=== PATIENT | female | born 1930 | race Caucasian/White ===

== ENCOUNTER 2016-07-28 18:24 | Inpatient (IN) | payer OTHER ==
--- NOTE | 2016-07-28 18:49 | EDPHY ---
H & P Stated Complaint: Fatigue and urinary frequency x 2 days, new chemo started this week Time Seen by Provider: 07/28/16 18:47 HPI/ROS: CHIEF COMPLAINT: Fatigue, urinary frequency, new chemotherapy x2 weeks HISTORY OF PRESENT ILLNESS: The patient has a history of metastatic breast cancer. She presents to the ED with a 2 day history of fatigue, subjective fevers, urinary frequency and a history of having started a new oral chemotherapeutic agent 2 weeks ago. The patient denies cough, congestion, vomiting, diarrhea, rash or additional infectious symptoms. She reports general malaise and weakness. She has no history of fall or trauma. The patient denies acute headache, focal numbness, weakness or additional complaints. REVIEW OF SYSTEMS: A comprehensive 10 point review of systems is otherwise negative aside from elements mentioned in the history of present illness. Source: Patient Exam Limitations: No limitations - Personal History Current Tetanus Diphtheria and Acellular Pertussis (TDAP): Yes - Medical/Surgical History Hx Asthma: No Hx Chronic Respiratory Disease: No Hx Diabetes: Yes Hx Cardiac Disease: No Hx Renal Disease: No Hx Cirrhosis: No Hx Alcoholism: No Hx HIV/AIDS: No Hx Splenectomy or Spleen Trauma: No Other PMH: Breast CA-mets to bone and liver (chemo x9 years) - Social History Smoking Status: Never smoked - Physical Exam Exam: General Appearance: Elderly female, no acute distress, thin Eyes: Pupils equal and round no pallor or injection ENT, Mouth: Dry mucous membranes Respiratory: There are no retractions, lungs are clear to auscultation Cardiovascular: Regular rate and rhythm Gastrointestinal: Abdomen is soft and nontender, no masses, bowel sounds normal Neurological: 5/5 strength noted all 4 extremities Skin: Warm and dry, no rashes/cellulitis/abscess Musculoskeletal: Neck is supple nontender Extremities: symmetrical, full range of motion Constitutional: Initial Vital Signs Temperature (C) 37.2 C 07/28/16 18:31 Heart Rate 92 07/28/16 18:31 Respiratory Rate 16 07/28/16 18:31 Blood Pressure 130/74 H 07/28/16 18:31 O2 Sat (%) 91 L 07/28/16 18:31 O2 Delivery Mode Room Air Allergies/Adverse Reactions: No Known Allergies Allergy (Unverified 10/05/15 15:25) Home Medications: Medication Instructions Recorded Aspirin 81 mg PO DAILY 10/05/15 Herbals/Supplements -Info Only PO DAILY 10/05/15 Simvastatin 40 mg PO DAILY20 10/05/15 Synthroid 100 mcg (RX) 100 mcg PO 10/05/15 Synthroid 50 mcg (RX) 50 mcg PO 10/05/15 Kiqali 07/28/16 Lotrozole 07/28/16 Methylphenidate 07/28/16 Medical Decision Making ED Course/Re-evaluation: The patient had an IV established. The patient has a floridly positive urinalysis. Patient received a 1 g of ceftriaxone. She received 2 L of normal saline. The patient is globally weak. She has developed a low-grade fever in the emergency department. I do feel that she should be admitted to the hospital secondary to weakness. She is certainly a fall risk. Her is uncomfortable taking care of her at home. The patient will be admitted to the hospitalist service. The patient currently has no SIRS criteria or evidence of sepsis. I did re-evaluate the patient at 8:10 p.m.. She is comfortable in the room. Vital signs remained stable. Consultation is made with Dr. Chino from the hospitalist service. Differential Diagnosis: Differential diagnosis considered includes neutropenic fever, urinary tract infection, sepsis, metabolic abnormality - Data Points Laboratory Results: Laboratory Results 07/28/16 18:34 07/28/16 18:34 07/28/16 07/28/16 07/28/16 19:00 18:34 18:34 WBC 5.68 10^3/uL 10^3/uL (3.80-9.50) RBC 3.74 10^6/uL L 10^6/uL (4.18-5.33) Hgb 12.3 g/dL L g/dL (12.6-16.3) Hct 37.6 % L % (38.0-47.0) MCV 100.5 fL H fL (81.5-99.8) MCH 32.9 pg pg (27.9-34.1) MCHC 32.7 g/dL g/dL (32.4-36.7) RDW 20.1 % H % (11.5-15.2) Plt Count 128 10^3/uL L 10^3/uL (150-400) MPV 10.1 fL fL (8.7-11.7) Neut % (Auto) Not Reported Lymph % (Auto) Not Reported [place] % (Auto) Not Reported Eos % (Auto) Not Reported Baso % (Auto) Not Reported Nucleat RBC Rel Count 0.0 % % (0.0-0.2) Absolute Neuts (auto) Not Reported Absolute Lymphs (auto) Not Reported Absolute Monos (auto) Not Reported Absolute Eos (auto) Not Reported Absolute Basos (auto) Not Reported Absolute Nucleated RBC 0.00 10^3/uL 10^3/uL (0-0.01) Immature Gran % Not Reported Seg Neutrophils % 79 % % Band Neutrophils % 10 % % Lymphocytes % 9 % % Monocytes % 1 % % Basophils % 1 % % Immature Gran # Not Reported Absolute Seg Neuts 4.49 10^/uL 10^/uL (1.70-6.50) Absolute Band Neuts 0.57 10^3/uL 10^3/uL (0.00-0.70) Absolute Lymphocytes 0.51 10^3/uL L 10^3/uL (1.00-3.00) Absolute Monocytes 0.06 10^3/uL L 10^3/uL (0.30-0.80) Absolute Basophils 0.06 10^3/uL 10^3/uL (0.02-0.10) Atypical Lymphocytes 3+ H Platelet Estimate DECREASED L (ADEQ) Polychromasia 1+ H Oval Macrocytes 1+ H Acanthocytes (Spur) 1+ H Smear Review By Pending Sodium 130 mEq/L L mEq/L (134-144) Potassium 4.1 mEq/L mEq/L (3.5-5.2) Chloride 99 mEq/L mEq/L (97-110) Carbon Dioxide 20 mEq/l L mEq/l (22-31) Anion Gap 11 mEq/L mEq/L (8-16) BUN 26 mg/dL H mg/dL (7-23) Creatinine 1.5 mg/dL H mg/dL (0.6-1.0) Estimated GFR 33 Glucose 108 mg/dL H mg/dL (70-100) Calcium 9.2 mg/dL mg/dL (8.5-10.4) Urine Color YELLOW Urine Appearance MODERATELY TURBID Urine pH 6.0 (5.0-7.5) Ur Specific [place] 1.013 (1.002-1.030) Urine Protein 2+ H (NEGATIVE) Urine Ketones NEGATIVE (NEGATIVE) Urine Blood 2+ H (NEGATIVE) Urine Nitrate NEGATIVE (NEGATIVE) Urine Bilirubin NEGATIVE (NEGATIVE) Urine Urobilinogen NEGATIVE EU EU (0.2-1.0) Ur Leukocyte Esterase 2+ H (NEGATIVE) Urine RBC 25-50 /hpf H /hpf (0-3) Urine WBC 50-182 /hpf H /hpf (0-3) Ur Epithelial Cells TRACE /lpf /lpf (NONE-1+) Urine Bacteria TRACE /hpf H /hpf (NONE SEEN) Ur Culture Indicated? INDICATED H (NI) Urine Glucose NEGATIVE (NEGATIVE) Medications Given: Discontinued Medications Ceftriaxone Sodium/Dextrose (Rocephin 1 Gm (Premix)) 50 mls @ 100 mls/hr IV EDNOW ONE PRN Reason: Protocol Stop: 07/28/16 19:30 Last Admin: 07/28/16 19:25 Dose: 50 mls Sodium Chloride (Ns) 1,000 mls @ 0 mls/hr IV ONCE ONE PRN Reason: Wide Open Stop: 07/28/16 19:03 Last Admin: 07/28/16 19:26 Dose: 1,000 mls Departure - Departure Disposition: [facility] Inpatient Acute Clinical Impression: Urinary tract infection, Dehydration, Metastatic breast cancer Condition: Fair Referrals: Patient,NotPresent [Primary Care Provider] - As per Instructions
[2016-07-28] MEDS ORDERED: NS 1,000 ML IV ONE ×2 (19:02)
[2016-07-28 19:07] LABS: ATYPICAL LYMPHOCYTE FLAG 0 (0-99); FRAGMENT RBC FLAG 0 (0-99); HEMATOCRIT 37.6 % (38.0-47.0); HEMOGLOBIN 12.3 g/dL (12.6-16.3); LIPEMIA HEMOLYSIS FLAG 80 (0-99); MEAN CELL HEMOGLOBIN 32.9 pg (27.9-34.1); MEAN CELL HEMOGLOBIN CONCENTR. 32.7 g/dL (32.4-36.7); MEAN CELL VOLUME 100.5 fL (81.5-99.8); MEAN PLATELET VOLUME 10.1 fL (8.7-11.7); PLATELET CLUMPS FLAG 10 (0-99); PLATELET COUNT 128 10^3/uL (150-400); RED BLOOD CELL COUNT 3.74 10^6/uL (4.18-5.33)
[2016-07-28 19:08] LABS: LEFT SHIFT FLG 120 (0-99); RED CELL DISTRIBUTION WIDTH 20.1 % (11.5-15.2)
[2016-07-28 19:09] LABS: ADD DIFF? YES; ADD MORPH? NO; ADD SCAN? NO
[2016-07-28 19:11] LABS: ANION GAP 11 mEq/L (8-16); CALCIUM 9.2 mg/dL (8.5-10.4); CARBON DIOXIDE 20 mEq/l (22-31); CHLORIDE 99 mEq/L (97-110); CREATININE 1.5 mg/dL (0.6-1.0); GLOMERULAR FILTRATION RATE 33; GLUCOSE 108 mg/dL (70-100); POTASSIUM 4.1 mEq/L (3.5-5.2); SODIUM 130 mEq/L (134-144)
[2016-07-28 19:17] LABS: COLOR YELLOW; LEUKOCYTE ESTERASE,URINE 2+ (NEGATIVE); NITRITE,URINE NEGATIVE (NEGATIVE)
[2016-07-28 19:20] LABS: BACTERIA TRACE /hpf (NONE SEEN); RBC,URINE 25-50 /hpf (0-3); WBC,URINE 50-182 /hpf (0-3)
[2016-07-28 19:56] LABS: MACROCYTES 1+; PLATELET ESTIMATE DECREASED (ADEQ); POLYCHROMASIA 1+
[2016-07-28 19:57] LABS: ACANTHOCYTES 1+
[2016-07-28] MEDS ORDERED: ACETAMINOPHEN 325 MG TAB PO ONE (20:08)
[2016-07-28] MEDS ORDERED: ONDANSETRON 4 MG/2 ML VIAL IVP PRN (20:10)
[2016-07-28] MEDS ORDERED: ONDANSETRON DISINTEGRATING 4 MG TAB PO PRN (20:10)
[2016-07-28] MEDS: NS 1,000 ML IV SCH (21:11)
--- NOTE | 2016-07-28 21:51 | GHP ---
[f rep st] HISTORY AND PHYSICAL DATE OF ADMISSION: 07/28/2016 CHIEF COMPLAINT: Fatigue and weakness. HISTORY OF PRESENT ILLNESS: An 86-year-old female with a history of breast cancer receiving chemoth erapy, who presents with complaints of fever and malaise. The patient reports over the course of th e last 72 hours a progressing weakness that kept her from even effectively ambulating to emergency s upport today. The patient describes intermittent fevers and chills for the past 72 hours and notes concurrent hematuria, which she has not had for a very long time. She denies any dysuria. Reports her appetite has been very poor. Denies any abdominal pain, nausea, or vomiting. Denies any headac hes, vision changes, chest pain, shortness of breath, or cough. The patient has no awareness of any recent sick contacts. She has been making effort to keep her fluid intake up. Her baseline per he r report is quite active, completing all her ADLs without complication. PAST MEDICAL HISTORY: Breast cancer metastatic to the bone and liver receiving chemotherapy; hypoth yroidism; hyperlipidemia. SOCIAL HISTORY: Negative for tobacco. Occasional alcohol. No illicit drugs or marijuana. FAMILY HISTORY: Positive for breast cancer in an aunt. ADVANCED DIRECTIVES: The patient is do not resuscitate. Her would be her medical decision maker. REVIEW OF SYSTEMS: A 10-point Review of Systems is negative with the exception of that reported in the HPI. PHYSICAL EXAMINATION: VITAL SIGNS: Blood pressure 130/60, heart rate 80, respiratory rate 18, 91% on room air, 37.9. GENERAL: This is a thin-appearing elderly female in no acute distress. HEENT: Notable for dry mucous membranes. Eyes: Negative for any icterus. CARDIAC: Regular rate and rhy thm. PULMONARY: Good respiratory effort. Clear to auscultation bilaterally. GASTROINTESTINAL: P ositive bowel sounds. Abdomen soft. She is nontender to palpation. MUSCULOSKELETAL: Negative for any lower extremity edema. SKIN: Negative for any rashes. NEUROLOGIC: She is alert and oriented x3. PSYCHIATRIC: She is pleasant and cooperative on interview and examination. DATA: White count 5.6, hematocrit 37.6, platelets of 128. Sodium of 130, potassium 4.1, creatinine of 1.5, recent baselines appear to be 1.1-1.3. BUN elevated at 26. Urinalysis shows 50-182 white b lood cells, positive leuk esterase. Telemetry, which I personally reviewed and interpreted, shows a sinus rhythm. ASSESSMENT AND PLAN: This is an 86-year-old female, presenting with fever and malaise. 1. Acute pyelonephritis: Patient is receiving chemotherapy. Presenting with hematuria and urinalys is consistent systemic symptoms of malaise and fever. Will IV fluid resuscitate and initiate IV lev ofloxacin. Urine cultures have been sent. Suspect the patient will respond to therapy in the next 24-48 hours. 2. Hypovolemic hyponatremia consistent with the patient's acute presentation. Will fluid resuscita te and recheck in the morning. 3. Acute on chronic kidney disease. The patient's creatinine is above her recent baselines. Again , will fluid resuscitate and recheck in the morning. 4. Metastatic breast cancer. She is actively followed by [facility]. Tolerating her treatment quite well. 5. Prophylaxis with Lovenox. 6. Diet; regular with nourishments. 7. Hypothyroidism. Will continue patient's Synthroid therapy. 8. Hyperlipidemia. Will continue patient's niacin and statin therapy. DISPOSITION: I expect in less than 2 midnights if the patient responds well to fluid resuscitation and antibiotic treatment. I discussed the case with the emergency room physician. Patient will be triaged to the [facility] for care. /[id number]/MODL
[2016-07-29] MEDS: LEVOTHYROXINE 100 MCG TAB PO SCH (05:28)
[2016-07-29] MEDS: NS 1,000 ML IV SCH ×2 (05:29→15:47)
[2016-07-29] MEDS: MULTIVITAMINS 1 EACH TAB PO SCH (08:36)
[2016-07-29] MEDS: CHOLECALCIFEROL VIT D3 1,000 UNITS TAB PO SCH (08:36)
[2016-07-29] MEDS: ACETAMINOPHEN 325 MG TAB PO PRN ×2 (08:36→20:31)
[2016-07-29] MEDS: LETROZOLE 2.5 MG TAB PO SCH (08:37)
[2016-07-29] MEDS: ASPIRIN 81 MG CHEWABLE TAB PO SCH (08:37)
[2016-07-29] MEDS: PRESERVISION AREDS2 FORMULA EYE VIT 1 EACH PO SCH (08:37)
[2016-07-29] MEDS: ENOXAPARIN 30 MG/0.3 ML SYR SC SCH (08:38)
[2016-07-29] MEDS ORDERED: NIACIN 250 MG PO SCH (09:00)
[2016-07-29] MEDS ORDERED: Herbals/Supplements -Info Only PO SCH (09:00)
--- NOTE | 2016-07-29 13:47 | HOSPPROG ---
Hospitalist Progress Note Assessment/Plan: DIAGNOSES: -ACUTE COMPLICATED URINARY TRACT INFECTION WITH SYSTEMIC SYMPTOMS AND HIGH FEVER -ACUTE RENAL INSUFFICIENCY, LIKELY HEMODYNAMICS DUE TO ABOVE -ANEMIA AND THROMBOCYTOPENIA FROM CANCER AND CHEMOTHERAPY -BREAST CANCER ON CURRENT CHEMOTHERAPY; METASTATIC DISEASE TO BONE AND LIVER As the patient has not really had any pain or tenderness, and we have no imaging studies, I would not give a diagnosis of pyelonephritis. It is possible that chemotherapy is somehow hiding painful symptoms from us. At this point she is making some progress. Nothing growing on cultures but will continue current empiric therapy as it seems to be working. PLANS: -continue empiric antibiotic therapy while waiting cultures -hydration -follow cell counts closely -follow renal function closely, consider imaging if her renal function does not resolve or if her infection does not resolve SUBJECTIVE: Feels a little better today with more energy a little bit stronger. Still having fever symptoms and a lot weaker than usual Appetite reasonably good No rigors today Again no abdominal pelvic or flank pain OBJECTIVE Vitals reviewed: T-max today 39.2, vitals otherwise normal Exam: alert oriented skin warm dry color ok resps not labored lungs clear BSs heart regular abd soft nondistended nontender, bowel sounds present There is notable absence of any tenderness in mid abdomen flanks or costovertebral angle areas limbs warm, no edema iv site ok Culture data: Pending Objective: Vital Signs Temp Pulse Resp BP Pulse Ox 36.8 C 77 18 120/60 94 07/29/16 11:45 07/29/16 11:45 07/29/16 11:45 07/29/16 11:45 07/29/16 11:45 07/28/16 07/29/16 07/30/16 06:59 06:59 06:59 Intake Total 2900 Output Total 375 Balance 2900 -375 ICD10 Worksheet Patient Problems: Problems Problem Status Onset Dehydration Acute Metastatic breast cancer Acute Urinary tract infection Acute
[2016-07-29] MEDS: ATORVASTATIN CALCIUM 20 MG TAB PO SCH (20:10)
[2016-07-29] MEDS ORDERED: HYDROmorphONE/DILAUDID 1 MG/ML SYR IVP PRN (22:34)
[2016-07-30] MEDS: NS 1,000 ML IV SCH ×3 (01:48→21:17)
[2016-07-30] MEDS: LEVOTHYROXINE 50 MCG TAB PO SCH (05:09)
[2016-07-30 05:35] LABS: ANION GAP 5 mEq/L (8-16); ATYPICAL LYMPHOCYTE FLAG 0 (0-99); CALCIUM 7.7 mg/dL (8.5-10.4); CARBON DIOXIDE 20 mEq/l (22-31); CHLORIDE 110 mEq/L (97-110); FRAGMENT RBC FLAG 0 (0-99); GLOMERULAR FILTRATION RATE 53; GLUCOSE 73 mg/dL (70-100); HEMATOCRIT 32.8 % (38.0-47.0); HEMOGLOBIN 10.4 g/dL (12.6-16.3); LIPEMIA HEMOLYSIS FLAG 80 (0-99); MEAN CELL HEMOGLOBIN 32.4 pg (27.9-34.1); MEAN CELL HEMOGLOBIN CONCENTR. 31.7 g/dL (32.4-36.7); MEAN CELL VOLUME 102.2 fL (81.5-99.8); MEAN PLATELET VOLUME 10.5 fL (8.7-11.7); PLATELET CLUMPS FLAG 10 (0-99); PLATELET COUNT 92 10^3/uL (150-400); POTASSIUM 3.8 mEq/L (3.5-5.2); RED BLOOD CELL COUNT 3.21 10^6/uL (4.18-5.33); SODIUM 135 mEq/L (134-144)
[2016-07-30 05:46] LABS: LEFT SHIFT FLG 130 (0-99); RED CELL DISTRIBUTION WIDTH 20.2 % (11.5-15.2)
[2016-07-30 05:47] LABS: ADD DIFF? YES; ADD MORPH? NO; ADD SCAN? NO
[2016-07-30 06:35] LABS: ECHINOCYTES 1+; ELLIPTOCYTES 1+; MACROCYTES 1+; POLYCHROMASIA 1+
[2016-07-30 06:36] LABS: PLATELET ESTIMATE DECREASED (ADEQ)
[2016-07-30] MEDS: PHENAZOPYRIDINE HCL 100 MG TAB PO SCH ×3 (07:57→18:31)
[2016-07-30] MEDS: CHOLECALCIFEROL VIT D3 1,000 UNITS TAB PO SCH (07:57)
[2016-07-30] MEDS: ASPIRIN 81 MG CHEWABLE TAB PO SCH (07:57)
[2016-07-30] MEDS: LETROZOLE 2.5 MG TAB PO SCH (07:57)
[2016-07-30] MEDS: ENOXAPARIN 30 MG/0.3 ML SYR SC SCH (07:57)
[2016-07-30] MEDS: MULTIVITAMINS 1 EACH TAB PO SCH (07:57)
[2016-07-30] MEDS: PRESERVISION AREDS2 FORMULA EYE VIT 1 EACH PO SCH (07:57)
[2016-07-30] MEDS: NIACIN 250 MG PO SCH (07:58)
--- NOTE | 2016-07-30 11:00 | SOAPPROG ---
SOAP Progress Note Assessment/Plan: Assessment: Plan: 07/30/16 11:00 urosepsis with e coli infection. temperature yesterday, still weak, improving. Given BRCA to bone mets and newer chemo, continue hospital care. BRCA with bone mets--holding new med, will f/u with [facility] as an outpatient Subjective: She feels better slowly. Appetite is low, but that is not unusual. She did have a mighty shake this am. + temp yesterday. She self caths on a regular basis and continues to do so here. New chemo meds per [facility] had been titrated up starting 3 weeks ago. She has not had it since she has been here. Objective: Vital Signs Temp Pulse Resp BP Pulse Ox 37.3 C 83 16 144/77 H 96 07/30/16 07:14 07/30/16 07:14 07/30/16 07:14 07/30/16 07:14 07/30/16 07:14 Laboratory Results 07/30/16 04:50 07/30/16 04:50 07/29/16 07/30/16 07/31/16 05:59 05:59 05:59 Intake Total 4978 Output Total 500 Balance 4478 Gen: NAD, tired, pale HEENT: no LN's Lungs: dry cough, mild coarseness--stable finding Heart: RRR ABd + bs soft nt LE's no edema culture e coli sensitive to ceftriaxone resistent to PCN and simple cephalosporins ICD10 Worksheet Patient Problems: Problems Problem Status Onset Dehydration Acute Metastatic breast cancer Acute Urinary tract infection Acute
[2016-07-30] MEDS: ACETAMINOPHEN 325 MG TAB PO PRN (16:40)
[2016-07-30] MEDS: ATORVASTATIN CALCIUM 20 MG TAB PO SCH (20:28)
--- NOTE | 2016-07-31 01:46 | CPEKG ---
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
[2016-07-31] MEDS ORDERED: DILTIAZEM 25 MG/5 ML VIAL IVP ONE (02:00)
--- NOTE | 2016-07-31 02:17 | HOSPPROG ---
Hospitalist Progress Note Assessment/Plan: Cross cover event note: RN paged me regarding new onset tachycardia (HR around 150s) noted on evening VS. Patient denied sensation of palpitations, chest pain, but did report some dizziness when walking to the restroom. On my evaluation, HR ranged from 130- 160 range, without improvement with Valsalva or IV fluid bolus of 500 cc. EKG was obtained and revealed afib vs aflutter, with underlying RBBB and LAFB. There are no old EKGs to compare. Given persistence of tachycardia, with EKG concerning for new onset Afib, patient was transferred to PCU for medical intervention and continued cardiac monitoring. - give diltiazem 10 mg IVP now - continue telemetry monitoring - check TTE, troponin and electrolytes - continue management of e coli UTI as previously documented Hilda Ramirez DO Objective: Vital Signs Temp Pulse Resp BP Pulse Ox 36.3 C 141 H 16 148/92 H 92 07/31/16 01:49 07/31/16 01:49 07/31/16 01:49 07/31/16 01:49 07/31/16 01:49 Laboratory Results 07/30/16 04:50 07/30/16 04:50 07/29/16 07/30/16 07/31/16 05:59 05:59 05:59 Intake Total 4978 650 Output Total 500 1550 Balance 6568 -478 ICD10 Worksheet Patient Problems: Problems Problem Status Onset Dehydration Acute Metastatic breast cancer Acute Urinary tract infection Acute
[2016-07-31] MEDS: NS 1,000 ML IV SCH (03:16)
[2016-07-31] MEDS ORDERED: OXYBUTYNIN CHLORIDE 5 MG TAB PO PRN (03:54)
[2016-07-31 04:05] LABS: % IMMATURE GRANULYOCYTES 0.5 % (0.0-1.1); ABSOLUTE IMMATURE GRANULOCYTES 0.02 10^3/uL (0.00-0.10); ADD DIFF? NO; ADD MORPH? NO; ADD SCAN? NO; ATYPICAL LYMPHOCYTE FLAG 0 (0-99); FRAGMENT RBC FLAG 0 (0-99); HEMATOCRIT 31.5 % (38.0-47.0); HEMOGLOBIN 10.2 g/dL (12.6-16.3); LEFT SHIFT FLG 30 (0-99); LIPEMIA HEMOLYSIS FLAG 80 (0-99); MEAN CELL HEMOGLOBIN 32.8 pg (27.9-34.1); MEAN CELL HEMOGLOBIN CONCENTR. 32.4 g/dL (32.4-36.7); MEAN CELL VOLUME 101.3 fL (81.5-99.8); MEAN PLATELET VOLUME 9.4 fL (8.7-11.7); PLATELET CLUMPS FLAG 10 (0-99); PLATELET COUNT 66 10^3/uL (150-400); RED BLOOD CELL COUNT 3.11 10^6/uL (4.18-5.33)
[2016-07-31 04:35] LABS: ANION GAP 6 mEq/L (8-16); CALCIUM 7.4 mg/dL (8.5-10.4); CARBON DIOXIDE 18 mEq/l (22-31); CHLORIDE 112 mEq/L (97-110); CREATININE 0.8 mg/dL (0.6-1.0); GLOMERULAR FILTRATION RATE > 60; GLUCOSE 78 mg/dL (70-100); POTASSIUM 3.4 mEq/L (3.5-5.2); SODIUM 136 mEq/L (134-144)
[2016-07-31 04:46] LABS: TROPONIN I 0.022 ng/mL (0-0.034)
[2016-07-31] MEDS: LEVOTHYROXINE 50 MCG TAB PO SCH (07:41)
[2016-07-31] MEDS ORDERED: POLYETHYLENE GLYCOL 3350 17 GM PKT ONE (08:26)
[2016-07-31] MEDS ORDERED: POTASSIUM CL 20 MEQ PKT ONE ×2 (08:26→21:07)
[2016-07-31] MEDS: PRESERVISION AREDS2 FORMULA EYE VIT 1 EACH PO SCH (08:34)
[2016-07-31] MEDS: ASPIRIN 81 MG CHEWABLE TAB PO SCH (08:34)
[2016-07-31] MEDS: CHOLECALCIFEROL VIT D3 1,000 UNITS TAB PO SCH (08:34)
[2016-07-31] MEDS: MULTIVITAMINS 1 EACH TAB PO SCH (08:34)
[2016-07-31] MEDS ORDERED: DILTIAZEM HCL/D5W 125 ML IV SCH (09:00)
[2016-07-31] MEDS ORDERED: ENOXAPARIN 40 MG/0.4 ML SYR SC SCH ×2 (09:00→21:00)
[2016-07-31] MEDS ORDERED: POTASSIUM CL 20 MEQ TAB PO ONE (09:00)
--- NOTE | 2016-07-31 09:31 | SOAPPROG ---
SOAP Progress Note Assessment/Plan: Assessment: Plan: 07/30/16 11:00 urosepsis with e coli infection. temperature yesterday, still weak, improving. Given BRCA to bone mets and newer chemo, continue hospital care. BRCA with bone mets--holding new med, will f/u with [facility] as an outpatient 07/31/16 09:30 new onset rapid a fib dilt drip started, increase lovenox to treament dose. Patient feels weaker, but is not distressed. D/W Dr Chacon UTI/urosepsis --doing well with ceftriaxone BRCA with mets--new chemo held anemia--stable Subjective: The patient states she feels a bit weaker with the new a fib. No SOB, some increase in cough. No CP/pressure. No n/v Mild residual bladder pain Objective: Vital Signs Temp Pulse Resp BP Pulse Ox 36.6 C 136 H 25 H 133/97 H 95 07/31/16 08:03 07/31/16 08:03 07/31/16 08:03 07/31/16 08:03 07/31/16 08:03 Laboratory Results 07/31/16 03:50 07/31/16 03:50 07/30/16 07/31/16 08/01/16 05:59 05:59 05:59 Intake Total 4978 700 Output Total 500 1550 Balance 0088 -850 Gen: NAD, pleasant, present HEENT: no erythema in throat, neck without masses Lungs: slightly productive cough, mildly coarse BS Heart: tachy irreg irreg Echo just completed, tech--no major abn's LE's no edema K+ 3.4 TSH nl Apr 2016 ICD10 Worksheet Patient Problems: Problems Problem Status Onset Dehydration Acute Metastatic breast cancer Acute Urinary tract infection Acute
[2016-07-31] MEDS: LETROZOLE 2.5 MG TAB PO SCH (09:38)
[2016-07-31] MEDS: PHENAZOPYRIDINE HCL 100 MG TAB PO SCH ×3 (09:39→21:03)
[2016-07-31] MEDS: NIACIN 250 MG PO SCH (09:39)
--- NOTE | 2016-07-31 10:36 | ECHO ---
[id number] + + [address] : : [place] [address] : : [phone] + + Adult Echocardiographic Report + --------+ :Name: DELANEY WILLOUGHBY BStudy Date: 07/31/2016 08:49 AM : : Hospital Admission Number: [id number] Locat ion: 222: :: 1930 Gender: Female Height: 66 in : :Age: 86 yrs Race: WH Weight: 110 l b : :Reason For Study: new afib : : BSA: 1.6 mete rs2 : :History: No previous : + --------+ MMode/2D Measurements \T\ Calculations IVSd: 1.6 cm LVIDd: 3.5 cm FS: 40.0 % LVOT diam: 1.7 cm LVPWd: 0.93 cm LVIDs: 2.1 cm EDV(Teich): LVOT area: 51.6 ml 2.4 cm2 ESV(Teich): 14.7 ml EF(Teich): 71.6 % LVLd ap4: 5.8 cm SV(MOD-sp4): EDV(MOD-sp4): 26.0 ml 39.0 ml LVLs ap4: 4.9 cm ESV(MOD-sp4): 13.0 ml EF(MOD-sp4): 66.7 % Normal Measurement Values: + + :LVIDd (3.5-5.7cm) IVSd (0.6-1.1cm) LVPWd (0.6-1.1cm) Aortic Root (2.0-3.7cm)Left Atrium (1.5-4.0cm): :LV Vol(d) (76-115ml) LV Vol(s) (29-48ml) Ejec Fraction (50-65%)PV Sergio (0.6- 1.2m/s) TV Sergio (0.4-1.0m/s) : :MV E Sergio (0.8-1.0m/s)MV A Sergio (0.3-1.0m/s)LVOT Sergio (0.7-1.2m/s) Asc Ao Sergio ( 0.9-1.8m/s) : + + Doppler Measurements \T\ Calculations MV E max sergio: Ao V2 max: LV V1 mean PG: MR max sergio: 101.0 cm/sec 125.2 cm/sec 2.0 mmHg 495.2 cm/sec MV dec time: Ao max PG: LV V1 mean: MR max P.16 sec 6.3 mmHg 64.8 cm/sec 98.1 mmHg Ao mean PG: LV V1 VTI: 14.6 cm 3.1 mmHg Ao V2 mean: 84.4 cm/sec Ao V2 VTI: 19.5 cm CARLOS(I,D): 1.8 cm2 SV(LVOT): 34.3 ml PA V2 max: TR max sergio: 69.2 cm/sec 319.3 cm/sec PA max PG: TR max P.9 mmHg 40.8 mmHg RAP systole: 15.0 mmHg RVSP(TR): 55.8 mmHg Left Ventricle The left ventricle is normal in size. Moderate concentric LVH noted. Diastolic Function Indeterminate due to due to afib.. LVEF = 60-65% with normal wall motions. No regional wall motion abnormalities noted. Right Ventricle The right ventricle is mildly dilated. The right ventricular systolic function is normal. Atria The left atrial size is normal. The right atrium is mild to moderately dilated. The interatrial septum is intact with no evidence for an atrial septal defect. Mitral Valve The mitral valve is normal in structure and function. There is no mitral valve stenosis. Mild to moderate MR without MV prolapse. Tricuspid Valve The tricuspid valve is normal in structure and function. There is no tricuspid stenosis. Mild to moderate TR with moderate Pulmonary HTN (PAS 51mmHg). Aortic Valve The aortic valve is normal in structure and function. There is no aortic stenosis. Mild aortic regurgitation. Pulmonic Valve The pulmonic valve is not well visualized. There is no pulmonic valvular stenosis. Trace pulmonic valvular regurgitation. Great Vessels The aortic root is normal size. Pericardium/Pleural There is a fat pad seen. trivial pericardial effusion. Conclusion A complete two-dimensional transthoracic echocardiogram was performed (2D, M-mode, Doppler and color flow Doppler). 1)Afib at 132bpm. 2)Normal LV size and systolic function with LVEF 60-65% and normal wall motions. 3)Moderate concentric LVH. 4)Mild-moderate ALEXANDRO. 5)Aortic valve sclerosis without or AI. 6)Mild-moderate MR without MV prolapse. 7)Mild to moderate TR with moderate pulmonary HTN. Final Reading Physician: Abdiaziz Velazquez electronically signed on 07/31/2016 10:35 AM Ordering Physician: Hilda Ramirez Performed By: Shy King
[2016-07-31] MEDS ORDERED: ENOXAPARIN 40 MG/0.4 ML SYR SC ONE (11:15)
[2016-07-31] MEDS: ENOXAPARIN 30 MG/0.3 ML SYR SC SCH ×2 (12:59→21:17)
[2016-07-31 15:21] LABS: POTASSIUM 3.7 mEq/L (3.5-5.2)
[2016-07-31] MEDS ORDERED: MAGNESIUM HYDROXIDE 30 ML UDCUP PO PRN (16:12)
[2016-07-31] MEDS ORDERED: POLYETHYLENE GLYCOL 3350 17 GM PKT PO PRN (16:12)
[2016-07-31] MEDS ORDERED: BISACODYL 10 MG SUPP PR PRN (16:12)
[2016-07-31] MEDS ORDERED: LACTULOSE 20 GM/30 ML UDCUP PO PRN (16:12)
[2016-07-31] MEDS ORDERED: POTASSIUM CL 20 MEQ PKT PO ONE (19:00)
[2016-07-31] MEDS: ATORVASTATIN CALCIUM 20 MG TAB PO SCH (21:04)
[2016-07-31] MEDS: SENNOSIDES/DOCUSATE SODIUM TAB PO SCH (21:18)
[2016-08-01] MEDS: NS 1,000 ML IV SCH (01:22)
[2016-08-01] MEDS: LEVOTHYROXINE 100 MCG TAB PO SCH (05:33)
[2016-08-01 05:52] LABS: HEMATOCRIT 27.7 % (38.0-47.0); HEMOGLOBIN 8.9 g/dL (12.6-16.3); MEAN CELL HEMOGLOBIN 32.2 pg (27.9-34.1); MEAN CELL HEMOGLOBIN CONCENTR. 32.1 g/dL (32.4-36.7); MEAN CELL VOLUME 100.4 fL (81.5-99.8); RED BLOOD CELL COUNT 2.76 10^6/uL (4.18-5.33)
[2016-08-01 06:29] LABS: ALANINE AMINOTRANSFERASE 48 IU/L (9-52); ALBUMIN 2.4 g/dL (3.5-5.0); ALKALINE PHOSPHATASE 157 IU/L (38-126); ANION GAP 4 mEq/L (8-16); ASPARTATE AMINOTRANSFERASE 53 IU/L (14-46); BILIRUBIN,TOTAL 0.5 mg/dL (0.1-1.4); CALCIUM 7.3 mg/dL (8.5-10.4); CARBON DIOXIDE 21 mEq/l (22-31); CHLORIDE 114 mEq/L (97-110); CREATININE 0.9 mg/dL (0.6-1.0); GLOMERULAR FILTRATION RATE 59; GLUCOSE 92 mg/dL (70-100); SODIUM 139 mEq/L (134-144); TOTAL PROTEIN 4.7 g/dL (6.3-8.2)
[2016-08-01] MEDS: ASPIRIN 81 MG CHEWABLE TAB PO SCH (10:24)
[2016-08-01] MEDS: PRESERVISION AREDS2 FORMULA EYE VIT 1 EACH PO SCH (10:24)
[2016-08-01] MEDS: MULTIVITAMINS 1 EACH TAB PO SCH (10:24)
[2016-08-01] MEDS: CHOLECALCIFEROL VIT D3 1,000 UNITS TAB PO SCH (10:24)
[2016-08-01] MEDS: ENOXAPARIN 30 MG/0.3 ML SYR SC SCH (10:24)
[2016-08-01] MEDS: PHENAZOPYRIDINE HCL 100 MG TAB PO SCH (10:24)
[2016-08-01] MEDS: LETROZOLE 2.5 MG TAB PO SCH (10:24)
[2016-08-01] MEDS: SENNOSIDES/DOCUSATE SODIUM TAB PO SCH ×3 (10:34→21:09)
[2016-08-01] MEDS: NIACIN 250 MG PO SCH (10:34)
--- NOTE | 2016-08-01 13:25 | SOAPPROG ---
SOAP Progress Note Assessment/Plan: Assessment: INfection, UTI vs possible pulmonary source with rales and pink sputum. Plan:Due to pink sputum, will stop Lovenox. Continue antibiotics. Check Chest X-ray. 08/01/16 13:25 Subjective: Feeling better. coughing up some pink tinged sputum. Generalized pain is improved. Objective: Vital Signs Temp Pulse Resp BP Pulse Ox 36.6 C 90 16 141/70 H 95 08/01/16 12:00 08/01/16 12:00 08/01/16 12:00 08/01/16 12:00 08/01/16 12:00 Laboratory Results 08/01/16 05:30 08/01/16 05:30 07/31/16 08/01/16 08/02/16 05:59 05:59 05:59 Intake Total 700 2955 Output Total 1550 Balance -850 2955 Lungs with L base rales. COR RRR, a-fib rapidly converted on Monday and has not returned. No significant edema. HGB low at 8.9 ICD10 Worksheet Patient Problems: Problems Problem Status Onset Dehydration Acute Metastatic breast cancer Acute Urinary tract infection Acute
[2016-08-01] MEDS: ATORVASTATIN CALCIUM 20 MG TAB PO SCH (20:50)
[2016-08-02] MEDS: LEVOTHYROXINE 50 MCG TAB PO SCH (06:03)
[2016-08-02] MEDS: MULTIVITAMINS 1 EACH TAB PO SCH (08:50)
[2016-08-02] MEDS: PRESERVISION AREDS2 FORMULA EYE VIT 1 EACH PO SCH (08:50)
[2016-08-02] MEDS: ASPIRIN 81 MG CHEWABLE TAB PO SCH (08:50)
[2016-08-02] MEDS: CHOLECALCIFEROL VIT D3 1,000 UNITS TAB PO SCH (08:50)
[2016-08-02] MEDS: LETROZOLE 2.5 MG TAB PO SCH (08:50)
[2016-08-02] MEDS: SENNOSIDES/DOCUSATE SODIUM TAB PO SCH ×2 (08:52→20:37)
[2016-08-02] MEDS: NIACIN 250 MG PO SCH (09:44)
[2016-08-02] MEDS: FUROSEMIDE 20 MG/2 ML VIAL IVP SCH (09:44)
[2016-08-02 10:39] LABS: % IMMATURE GRANULYOCYTES 1.2 % (0.0-1.1); ABSOLUTE IMMATURE GRANULOCYTES 0.05 10^3/uL (0.00-0.10); ADD DIFF? NO; ADD MORPH? NO; ADD SCAN? NO; ATYPICAL LYMPHOCYTE FLAG 0 (0-99); FRAGMENT RBC FLAG 0 (0-99); HEMATOCRIT 31.9 % (38.0-47.0); HEMOGLOBIN 10.4 g/dL (12.6-16.3); LEFT SHIFT FLG 20 (0-99); LIPEMIA HEMOLYSIS FLAG 80 (0-99); MEAN CELL HEMOGLOBIN 32.2 pg (27.9-34.1); MEAN CELL HEMOGLOBIN CONCENTR. 32.6 g/dL (32.4-36.7); MEAN CELL VOLUME 98.8 fL (81.5-99.8); MEAN PLATELET VOLUME 9.5 fL (8.7-11.7); PLATELET CLUMPS FLAG 0 (0-99); PLATELET COUNT 62 10^3/uL (150-400); RED BLOOD CELL COUNT 3.23 10^6/uL (4.18-5.33); RED CELL DISTRIBUTION WIDTH 19.9 % (11.5-15.2)
[2016-08-02 11:36] LABS: ALANINE AMINOTRANSFERASE 54 IU/L (9-52); ALBUMIN 2.9 g/dL (3.5-5.0); ALKALINE PHOSPHATASE 203 IU/L (38-126); ANION GAP 7 mEq/L (8-16); ASPARTATE AMINOTRANSFERASE 57 IU/L (14-46); BILIRUBIN,TOTAL 0.7 mg/dL (0.1-1.4); CALCIUM 8.4 mg/dL (8.5-10.4); CARBON DIOXIDE 22 mEq/l (22-31); CHLORIDE 108 mEq/L (97-110); CREATININE 0.8 mg/dL (0.6-1.0); GLOMERULAR FILTRATION RATE > 60; GLUCOSE 103 mg/dL (70-100); POTASSIUM 3.7 mEq/L (3.5-5.2); SODIUM 137 mEq/L (134-144); TOTAL PROTEIN 5.7 g/dL (6.3-8.2)
[2016-08-02] MEDS: ATORVASTATIN CALCIUM 20 MG TAB PO SCH (20:37)
--- NOTE | 2016-08-02 21:11 | SOAPPROG ---
SOAP Progress Note Assessment/Plan: Assessment: INfection, UTI vs possible pulmonary source with rales and pink sputum. [place] sputume resolved upon discontinuation of lovenox. Plan: Continue antibiotics. Add lasix. BUF cap IV. 08/01/16 13:25 08/02/16 21:10 Subjective: Still coughing. Feeling stronger. Muscle pain is improved. Objective: Vital Signs Temp Pulse Resp BP Pulse Ox 36.8 C 80 18 136/71 H 92 08/02/16 20:00 08/02/16 20:00 08/02/16 20:00 08/02/16 20:00 08/02/16 20:00 Laboratory Results 08/02/16 10:30 08/02/16 10:30 08/01/16 08/02/16 08/03/16 05:59 05:59 05:59 Intake Total 2955 1150 440 Balance 2955 1150 440 Lungs with bibasalar rales. COR RRR. No edema. Labs reviewed. CXR REviewed. ICD10 Worksheet Patient Problems: Problems Problem Status Onset Dehydration Acute Metastatic breast cancer Acute Urinary tract infection Acute
[2016-08-03] MEDS: LEVOTHYROXINE 100 MCG TAB PO SCH (05:22)
[2016-08-03 05:47] LABS: % IMMATURE GRANULYOCYTES 1.1 % (0.0-1.1); ABSOLUTE IMMATURE GRANULOCYTES 0.04 10^3/uL (0.00-0.10); ADD DIFF? NO; ADD MORPH? NO; ADD SCAN? YES; ATYPICAL LYMPHOCYTE FLAG 0 (0-99); FRAGMENT RBC FLAG 0 (0-99); HEMATOCRIT 27.5 % (38.0-47.0); LEFT SHIFT FLG 70 (0-99); LIPEMIA HEMOLYSIS FLAG 80 (0-99); MEAN CELL HEMOGLOBIN 32.7 pg (27.9-34.1); MEAN CELL HEMOGLOBIN CONCENTR. 32.7 g/dL (32.4-36.7); MEAN PLATELET VOLUME 11.2 fL (8.7-11.7); PLATELET CLUMPS FLAG 10 (0-99); PLATELET COUNT 52 10^3/uL (150-400); RED BLOOD CELL COUNT 2.75 10^6/uL (4.18-5.33); RED CELL DISTRIBUTION WIDTH 19.9 % (11.5-15.2)
[2016-08-03 06:07] LABS: ALANINE AMINOTRANSFERASE 57 IU/L (9-52); ALBUMIN 2.5 g/dL (3.5-5.0); ALKALINE PHOSPHATASE 201 IU/L (38-126); ANION GAP 6 mEq/L (8-16); ASPARTATE AMINOTRANSFERASE 68 IU/L (14-46); BILIRUBIN,TOTAL 0.6 mg/dL (0.1-1.4); CALCIUM 8.1 mg/dL (8.5-10.4); CARBON DIOXIDE 24 mEq/l (22-31); CHLORIDE 108 mEq/L (97-110); CREATININE 0.8 mg/dL (0.6-1.0); GLOMERULAR FILTRATION RATE > 60; GLUCOSE 90 mg/dL (70-100); POTASSIUM 3.4 mEq/L (3.5-5.2); SODIUM 138 mEq/L (134-144); TOTAL PROTEIN 4.8 g/dL (6.3-8.2)
[2016-08-03 06:39] LABS: SCAN NEGATIVE
[2016-08-03 07:40] VITALS: BP 140/78; PULSE 65; RESP 13; TEMP 98.1; O2SAT 90
[2016-08-03] MEDS: SENNOSIDES/DOCUSATE SODIUM TAB PO SCH (08:09)
[2016-08-03] MEDS: LETROZOLE 2.5 MG TAB PO SCH (08:11)
[2016-08-03] MEDS: CHOLECALCIFEROL VIT D3 1,000 UNITS TAB PO SCH (08:11)
[2016-08-03] MEDS: PRESERVISION AREDS2 FORMULA EYE VIT 1 EACH PO SCH (08:11)
[2016-08-03] MEDS: ASPIRIN 81 MG CHEWABLE TAB PO SCH (08:12)
[2016-08-03] MEDS: FUROSEMIDE 20 MG/2 ML VIAL IVP SCH (08:12)
[2016-08-03] MEDS: NIACIN 250 MG PO SCH (08:17)
[2016-08-03] MEDS ORDERED: POTASSIUM CL 20 MEQ/15 ML UDCUP PO SCH (09:00)
[2016-08-03] MEDS: MULTIVITAMINS 1 EACH TAB PO SCH (09:19)
--- NOTE | 2016-08-03 09:58 | SOAPPROG ---
SOAP Progress Note Assessment/Plan: Assessment: INfection, UTI vs possible pulmonary source with rales and pink sputum. [place] sputume resolved upon discontinuation of lovenox. Doing much better. FLuid overload improved. Mild hypokalemia on 20 mg lasix. Plan: Switch to oral antibiotics. K+ replacement, DC to home with a few days of K+ and lasix. FOllow up on Monday or Monday, sooner if needed. 08/01/16 13:25 08/02/16 21:10 08/03/16 09:56 Subjective: Getting frustrated with being in the hospital. Feels that she is comfortably strong enough to go home. Cough is better. Muscle aches are gone, she has no pain. Objective: Vital Signs Temp Pulse Resp BP Pulse Ox 36.7 C 65 13 140/78 H 90 L 08/03/16 07:35 08/03/16 07:35 08/03/16 07:35 08/03/16 07:35 08/03/16 07:35 Laboratory Results 08/03/16 05:30 08/03/16 05:30 08/02/16 08/03/16 08/04/16 05:59 05:59 05:59 Intake Total 1150 1540 Balance 1150 1540 Lungs with minimal basalar rales. COR RRR. VS good. K+ slightly low ICD10 Worksheet Patient Problems: Problems Problem Status Onset Dehydration Acute Metastatic breast cancer Acute Urinary tract infection Acute
--- NOTE | 2016-08-03 14:19 | GDS ---
[f rep st] DISCHARGE SUMMARY ADMISSION DIAGNOSIS: Urosepsis. DISCHARGE DIAGNOSES: Urinary infection, possible pneumonia, possibly urosepsis, widely metastatic b reast cancer on chemotherapy, neurogenic bladder. HOSPITAL COURSE: The patient was admitted with diagnosis of urosepsis. She was placed on antibioti cs. Urine culture returned with E coli, which was sensitive to ceftriaxone, nitrofurantoin, tetracy temple, trimethoprim sulfa, and levofloxacin, was resistant to ampicillin, ampicillin sulbactam, cefa zolin, cefoxitin. She was placed on ceftriaxone and clinically she improved. Chest x-ray was subse quently taken, which showed bibasilar infiltrates, which were thought to represent some fluid overlo ad, although, pneumonia could not be excluded. She was coughing up some pink material during the ho spitalization. It was felt that she did become somewhat fluid overloaded, and she was started on a short course of Lasix 20 mg daily, which resulted in mild hypokalemia, and she was placed on potassi um replacement. She did well and was discharged. MEDICATIONS AT TIME OF DISCHARGE: Tylenol as needed, Lasix 20 mg daily, levothyroxine 50 mg daily, Polyethylene glycol as needed, potassium chloride 20 mEq daily, Ceftin 500 mg b.i.d., simvastatin 40 mg h.s., herbals, aspirin 81 mg daily, Letrozole 2.5 mg daily, Kiqali 3 tabs daily, vitamin D3 1000 units daily, multivitamins, Slo-Niacin 250 mg daily. FOLLOW UP: She will follow up with me in the office in 1 week. She will call Dr. Shetty to follow up with him. She will call me immediately if symptoms worsen. /[id number]/MODL
[2016-08-04] MEDS ORDERED: CEFUROXIME AXETIL 250 MG TAB PO SCH (09:00)
== END 2016-08-03 12:16 | disposition home or self-care (01) | DRG 689 ==
LOC: EDBD → EDUNIT# → F1N 20:56 → OBSVTOIN 07-29 13:47 → F2W 07-31 03:03
PROVIDERS: ADMIT Hospitalist; ATTEND Hospitalist
DX: N39.0 Urinary tract infection, site not specified (principal); J18.9 Pneumonia, unspecified organism; C79.51 Secondary malignant neoplasm of bone; E87.1 Hypo-osmolality and hyponatremia; C78.7 Secondary malignant neoplasm of liver and intrahepatic bile duct; N31.9 Neuromuscular dysfunction of bladder, unspecified; C50.919 Malignant neoplasm of unspecified site of unspecified female breast; E03.9 Hypothyroidism, unspecified; E78.5 Hyperlipidemia, unspecified; N18.9 Chronic kidney disease, unspecified; B96.20 Unspecified Escherichia coli [E. coli] as the cause of diseases classified elsewhere
CPT/HCPCS: 96365; 97161-GP; 97165-GO; G0378; G8978-GP-CI; G8979-GP-CI; G8980-GP-CI; G8987-GO-CI; G8988-GO-CH; G8989-GO-CH; J0696; J1170; J1642; J1650

== ENCOUNTER 2017-01-27 14:52 | Inpatient (IN) | payer OTHER ==
--- NOTE | 2017-01-27 15:15 | EDPHY ---
H & P Time Seen by Provider: 01/27/17 15:05 HPI/ROS: CHIEF COMPLAINT: I am so tired HISTORY OF PRESENT ILLNESS: This 86-year-old woman is on her last day of Levaquin for urinary tract infection. Recent admission for urinary tract infection and sepsis. Today she was walking to the bathroom and felt lightheaded dizzy and then passed out and hit her head. Her primary complaint is she has worsening and severe fatigue. This is worse with exercise. Increasing over the past 2 weeks. Not associated with fever or chills or chest pain but she does have a nonproductive cough for the past 48 hours. REVIEW OF SYSTEMS: Eye: no change in vision ENT: no sore throat Cardiac: Syncope as above, but no chest pain Pulmonary: HPI, no shortness of breath Abdomen: no vomiting, diarrhea, abdominal pain Musculoskeletal: no back pain Skin: no rash Neuro: no headache Constitutional: no fever, increasing fatigue as noted above : no urinary symptoms A comprehensive 10 point review of systems is otherwise negative aside from elements mentioned in the history of present illness. PAST MEDICAL HISTORY: Includes breast cancer metastatic to bone and liver, hypothyroid, hyperlipidemia. Social history: , here with , lives independently. General Appearance: Alert and conversant, cooperative. Eyes: No scleral icterus. ENT, Mouth: Normal mucous membranes. Respiratory: Normal respiratory effort, breath sounds equal, lungs are clear to auscultation. Cardiovascular: Regular rate and rhythm. Gastrointestinal: Abdomen is soft and non tender. Neurological: Alert and oriented x3. Normally conversant. Face symmetric, normal movement and sensation in all extremities. Skin: 2 cm laceration left eyebrow. She has a port just on the left side of her chest which looks clean dry and intact. Musculoskeletal: No peripheral edema and no joint swelling. No spinal tenderness. No extremity tenderness. Psychiatric: Not agitated. Emergency Department course/MDM: Patient's oxygen saturation noted to be in the 80s. Plan for EKG, labs and chest x-ray. Noncontrast head CT wound care and wound closure. Cervical spine cleared clinically, no C-spine tenderness on exam. 1600: Negative head CT for trauma, [facility]. 1604: [facility] will admit. Elevated D-dimer and creatinine discussed, he will see the patient personally this evening and requests no further imaging at this time. Hypoxia discussed with him, pulmonary embolism considered giving hypoxia and history of cancer. Patient is not currently symptomatic or short of breath. 1620: Results and plan discussed with the patient and . Urinalysis is ordered, to be obtained in the ER or as inpatient. No urinary symptoms and afebrile now. Smoking Status: Never smoked Constitutional: Initial Vital Signs Temperature (C) 36.4 C 01/27/17 14:52 Heart Rate 99 01/27/17 14:52 Respiratory Rate 18 01/27/17 14:52 Blood Pressure 125/73 H 01/27/17 14:52 O2 Sat (%) 87 L 01/27/17 14:52 O2 Delivery Mode Room Air O2 (L/minute) 3 Allergies/Adverse Reactions: No Known Allergies Allergy (Verified 01/27/17 16:24) Home Medications: Medication Instructions Recorded Levothyroxine [Synthroid 50 mcg 50 mcg PO SUTUTHSA@06 10/05/15 (*)] Levothyroxine [Synthroid 100 mcg 100 mcg PO MWF@06 #0 tab 08/03/16 (*)] levOFLOXACIN [levAQUIN (*)] 500 mg PO DAILY 01/27/17 Medical Decision Making - Diagnostics EKG Interpretation: 12-lead EKG interpreted by me; official reading is in trace master. My interpretation is sinus rhythm with first-degree AV block and right bundle branch block and left anterior fascicular block. Imaging Results: Imaging Impressions Chest X-Ray 01/27/17 15:14 Impression: 1. Severe and worsening osseous metastatic burden. 2. Poor inspiratory depth, with possible progression of interstitial lung abnormality. Head CT 01/27/17 15:14 Impression: 1. No acute intracranial findings. 2. Diffuse sclerotic osseous metastases, similar to the comparison MRI, with direct comparison limited by variation in modality. 3. Diffuse cerebral atrophy with periventricular and subcortical low attenuation consistent with chronic microvascular ischemic gliosis. Findings discussed with Edmond Go 01/27/2017, at 1558 hours. Procedures: Procedure: Laceration repair. Verbal consent was obtained from the patient. The 2 cm laceration on the location was anesthetized using 0.5% bupivacaine with epinephrine. The wound was irrigated with standard emergency department protocol, draped and explored. There were no deep structures involved. No foreign body found. The wound was repaired with 6 0 Prolene. The wound repair was simple. Excellent hemostasis was obtained. Wound care instructions were discussed and the patient was warned regarding scarring. The procedure was performed by myself. Differential Diagnosis: Differential diagnosis considered for head injury including but not limited to concussion, skull fracture, intraparenchymal contusion, subarachnoid, subdural and epidural hematoma. Differential diagnosis considered for syncope including but not limited to vasovagal syncope, arrhythmia, dehydration, and blood loss. - Data Points Laboratory Results: Laboratory Results 01/27/17 15:05 01/27/17 15:13 01/27/17 01/27/17 01/27/17 15: 15: 15:05 WBC 12.61 10^3/uL H 10^3/uL (3.80-9.50) RBC 3.46 10^6/uL L 10^6/uL (4.18-5.33) Hgb 12.9 g/dL g/dL (12.6-16.3) Hct 39.0 % % (38.0-47.0) MCV 112.7 fL H fL (81.5-99.8) MCH 37.3 pg H pg (27.9-34.1) MCHC 33.1 g/dL g/dL (32.4-36.7) RDW 17.3 % H % (11.5-15.2) Plt Count 256 10^3/uL 10^3/uL (150-400) MPV 10.5 fL fL (8.7-11.7) Neut % (Auto) Not Reported Lymph % (Auto) Not Reported [place] % (Auto) Not Reported Eos % (Auto) Not Reported Baso % (Auto) Not Reported Nucleat RBC Rel Count 0.3 % H % (0.0-0.2) Absolute Neuts (auto) Not Reported Absolute Lymphs (auto) Not Reported Absolute Monos (auto) Not Reported Absolute Eos (auto) Not Reported Absolute Basos (auto) Not Reported Absolute Nucleated RBC 0.04 10^3/uL H 10^3/uL (0-0.01) Immature Gran % Not Reported Seg Neutrophils % 76 % % Band Neutrophils % 1 % % Lymphocytes % 15 % % Monocytes % 5 % % Myelocytes % 3 % % Immature Gran # Not Reported Absolute Seg Neuts 9.58 10^/uL H 10^/uL (1.70-6.50) Absolute Band Neuts 0.13 10^3/uL 10^3/uL (0.00-0.70) Absolute Lymphocytes 1.89 10^3/uL 10^3/uL (1.00-3.00) Absolute Monocytes 0.63 10^3/uL 10^3/uL (0.30-0.80) Absolute Myelocytes 0.38 10^3/mL H 10^3/mL (0.00-0.00) Platelet Estimate ADEQUATE (ADEQ) Polychromasia 1+ H Microcytic Cells 1+ H Oval Macrocytes 2+ H Schistocytes 1+ H Smear Review By Pending D-Dimer 2.20 ug/mLFEU H ug/mLFEU (0.00-0.50) Sodium 136 mEq/L mEq/L (134-144) Potassium 4.7 mEq/L mEq/L (3.5-5.2) Chloride 102 mEq/L mEq/L (97-110) Carbon Dioxide 23 mEq/l mEq/l (22-31) Anion Gap 11 mEq/L mEq/L (8-16) BUN 25 mg/dL H mg/dL (7-23) Creatinine 1.5 mg/dL H mg/dL (0.6-1.0) Estimated GFR 33 Glucose 133 mg/dL H mg/dL (70-100) Calcium 10.0 mg/dL mg/dL (8.5-10.4) Troponin I < 0.012 ng/mL ng/mL (0.000-0.034) Medications Given: Discontinued Medications Lidocaine (Lidocaine 2% Jelly) 1 anderson TP EDNOW ONE Stop: 01/27/17 15:41 Last Admin: 01/27/17 15:45 Dose: Not Given Departure - Departure Disposition: [facility] Inpatient Acute Clinical Impression: Weakness Syncope Qualifiers: Syncope type: unspecified Qualified Code(s): R55 - Syncope and collapse Facial laceration Qualifiers: Encounter type: initial encounter Qualified Code(s): S01.81XA - Laceration without foreign body of other part of head, initial encounter Condition: Good
[2017-01-27 15:29] LABS: ABSOLUTE NRBC COUNT 0.04 10^3/uL (0-0.01); ADD DIFF? YES; ADD MORPH? NO; ADD SCAN? NO; ATYPICAL LYMPHOCYTE FLAG 10 (0-99); FRAGMENT RBC FLAG 10 (0-99); HEMOGLOBIN 12.9 g/dL (12.6-16.3); LEFT SHIFT FLG 40 (0-99); LIPEMIA HEMOLYSIS FLAG 80 (0-99); MEAN CELL HEMOGLOBIN 37.3 pg (27.9-34.1); MEAN CELL HEMOGLOBIN CONCENTR. 33.1 g/dL (32.4-36.7); MEAN CELL VOLUME 112.7 fL (81.5-99.8); MEAN PLATELET VOLUME 10.5 fL (8.7-11.7); NRBC-AUTO% 0.3 % (0.0-0.2); PLATELET CLUMPS FLAG 10 (0-99); PLATELET COUNT 256 10^3/uL (150-400); RED BLOOD CELL COUNT 3.46 10^6/uL (4.18-5.33); RED CELL DISTRIBUTION WIDTH 17.3 % (11.5-15.2)
[2017-01-27] MEDS ORDERED: LIDOCAINE 2% JELLY 5 ML TUBE ONE (15:39)
[2017-01-27] MEDS ORDERED: LIDOCAINE 2% JELLY 5 ML TUBE TP ONE (15:40)
[2017-01-27 15:43] LABS: ANION GAP 11 mEq/L (8-16); CARBON DIOXIDE 23 mEq/l (22-31); CHLORIDE 102 mEq/L (97-110); CREATININE 1.5 mg/dL (0.6-1.0); GLOMERULAR FILTRATION RATE 33; GLUCOSE 133 mg/dL (70-100); POTASSIUM 4.7 mEq/L (3.5-5.2); SODIUM 136 mEq/L (134-144)
--- NOTE | 2017-01-27 15:45 | CPEKG ---
Heart Rate: 96 RR Interval: 625 P-R Interval: 216 QRSD Interval: 122 QT Interval: 380 QTC Interval: 481 P [place]: 64 QRS [place]: -76 T Wave [place]: 61 EKG Severity - ABNORMAL ECG - EKG Impression: SINUS RHYTHM EKG Impression: FIRST DEGREE AV BLOCK EKG Impression: RBBB AND LAFB EKG Impression: PROBABLE LEFT VENTRICULAR HYPERTROPHY Electronically Signed By: Edmond Go 27-Jan-2017 15:55:19
[2017-01-27 15:53] LABS: TROPONIN I < 0.012 ng/mL (0.000-0.034)
[2017-01-27 16:16] LABS: MACROCYTES 2+; MICROCYTES 1+; PLATELET ESTIMATE ADEQUATE (ADEQ); POLYCHROMASIA 1+; SCHISTOCYTES 1+
[2017-01-27] MEDS ORDERED: NS 1,000 ML IV SCH ×2 (18:30)
[2017-01-27] MEDS ORDERED: D5W NS 1,000 ML IV SCH (19:30)
[2017-01-27 19:33] LABS: COLOR YELLOW; LEUKOCYTE ESTERASE,URINE TRACE (NEGATIVE); NITRITE,URINE NEGATIVE (NEGATIVE)
[2017-01-27 19:36] LABS: RBC,URINE 25-50 /hpf (0-3); WBC,URINE 25-50 /hpf (0-3)
[2017-01-27] MEDS: HYDROCODONE/HOMATROPINE HYCODAN 5 ML UDL PO PRN (20:00)
[2017-01-27] MEDS: HEPARIN 5,000 UNIT/0.5 ML SYR SC SCH (22:31)
[2017-01-27] MEDS: PIPERACILLIN/TAZO 3.375 GM/DEX 50 ML IV SCH (22:31)
[2017-01-28] MEDS ORDERED: PIPERACILLIN/TAZO 4.5 GM/DEX 100 ML IV SCH
[2017-01-28] MEDS: PIPERACILLIN/TAZO 3.375 GM/DEX 50 ML IV SCH ×3 (01:50→13:52)
[2017-01-28] MEDS: HEPARIN 5,000 UNIT/0.5 ML SYR SC SCH ×3 (06:42→23:24)
[2017-01-28] MEDS ORDERED: ENOXAPARIN 40 MG/0.4 ML SYR SC SCH (09:00)
--- NOTE | 2017-01-28 09:57 | SOAPPROG ---
SOAP Progress Note Assessment/Plan: Assessment: 86 yo female admitted yesterday following a syncopal episode during which she hit her head. CT negative for bleed, neuro grossly intact. Cxr demonstrates R sided pneumonia. Pt just finished a course of levaquin for a UTI yesterday, so started her on zosyn for additional coverage. She has active breast cancer with metastases for which she is currently on a chemo hiatus with Dr. Shetty. Plan: Pneumonia- continue zosyn, finished levaquin yesterday. Monitor O2 requirements , vitals stable at this time Generalized weakness- pt/ot to eval today, encourage ambulation as tolerated Elevated creatinine- IVF overnight, slowed today due to increased O2 requirements, recheck BNP and monitor renal function Breast cancer- currently on chemo hiatus Neurogenic bladder- straight caths prn at home, elliott inserted last night to ensure bladder emptying while on IVF Chronic pyuria- will check urine culture today 01/28/17 09:57 Subjective: Laurie is resting in bed this morning. She reports that she ate quite a bit of her cottage cheese and some fruit this morning. Feeling okay, just very weak. Tried to get up to ambulate this morning but was fatigued. She says her cough is less productive this AM. Objective: Vital Signs Temp Pulse Resp BP Pulse Ox 98.3 F 89 22 H 105/66 98 01/28/17 08:18 01/28/17 08:18 01/28/17 08:18 01/28/17 08:18 01/28/17 08:18 01/27/17 01/28/17 01/29/17 05:59 05:59 05:59 Intake Total 956 Output Total 300 Balance 656 Gen- AAOx3 EENT- PEERL, EOMI CV- S1S2, RRR, no murmurs, rubs, gallops Resp- rales to RLL Skin- sutured laceration above L eye with ecchymosis surrounding eye Extremities- no peripheral edema Neuro- grossly intact ICD10 Worksheet Patient Problems: Problems Problem Status Onset Facial laceration Acute Syncope Acute Weakness Acute Dehydration Acute Metastatic breast cancer Acute Urinary tract infection Acute
[2017-01-28 11:24] LABS: ANION GAP 7 mEq/L (8-16); CALCIUM 8.6 mg/dL (8.5-10.4); CARBON DIOXIDE 21 mEq/l (22-31); CHLORIDE 107 mEq/L (97-110); CREATININE 1.4 mg/dL (0.6-1.0); GLOMERULAR FILTRATION RATE 36; GLUCOSE 112 mg/dL (70-100); POTASSIUM 4.4 mEq/L (3.5-5.2); SODIUM 135 mEq/L (134-144)
--- NOTE | 2017-01-28 12:25 | GCON ---
[f rep st] CONSULTATION INPATIENT ONCOLOGY CONSULTATION DATE OF CONSULTATION: 01/28/2017 REFERRING PHYSICIAN: Christiano Khan MD PATIENT ONCOLOGIST: Teddy Shetty MD. REASON FOR CONSULTATION: Advanced metastatic breast cancer. HISTORY OF ILLNESS: The patient is an 86-year-old woman with a long history of metastatic ER positiv e, HER-2 negative breast cancer. She has had multiple prior lines of therapy including Xeloda, Abrax ane, eribulin, gemcitabine and Doxil. Most recently, she was on letrozole and ribociclib. She unfor tunately was noted to have progressive bone and liver metastases a few weeks ago. She and Dr. Liz street elected to temporarily stop her therapy and then discuss whether to resume cytotoxic chemotherapy o r simply to pursue palliative care. The patient states she has been feeling somewhat weak and tired recently. She was started on Levaqui n for a urinary tract infection about a week ago. When she was walking in her kitchen yesterday, she had a syncopal episode and fell and struck her left eye. She was brought to the [facility]. She had an eyebrow laceration sutured. A chest x-ray revealed evidence of a pneumonia, and so horace street was started on Zosyn. She states that she is feeling better today and has no specific complaints. PAST MEDICAL HISTORY: 1. Breast cancer, as noted above. 2. Hypothyroidism. 3. Hyperlipidemia. CURRENT MEDICATIONS: Include subcu heparin, hydrocodone syrup, Synthroid and Zosyn. ALLERGIES: She has no known drug allergies. FAMILY HISTORY: Noncontributory. SOCIAL HISTORY: She is nonsmoker, nondrinker. Lives with her . REVIEW OF SYSTEMS: Other than pertinent positives noted in HPI, a 14-point review of systems is nega tive. . PHYSICAL EXAMINATION: VITAL SIGNS: Temperature is 36.8, blood pressure 105/66, heart rate 89, oxyge n saturation 98% on 6 L. GENERAL: She is an elderly appearing woman breathing comfortably in no acu te distress. HEENT: Sclerae anicteric. Oropharynx is clear. NECK: Supple without lymphadenopathy . LUNGS: Clear to auscultation bilaterally. CARDIAC: Regular rate and rhythm. No murmurs, gallop s, or rubs. ABDOMEN: Normoactive bowel sounds. Nontender. EXTREMITIES: Without edema. SKIN: Horace street had ecchymoses around her left orbit. NEUROLOGIC: She is alert and oriented x3. Strength and sen sation were grossly intact. LABORATORY DATA: White count 12.6, hemoglobin 12.9, platelets of 256. Sodium 135, potassium 4.4, ch loride 107, bicarb 21, BUN 20, creatinine 1.4. IMPRESSION: This is an 86-year-old woman with metastatic ER positive breast cancer, now progressive after multiple lines of prior therapy. Her increasing weakness could be due to infection but also co uld conceivably be due to her progressive cancer. [facility]. RECOMMENDATIONS: 1. Continue treatment for pneumonia as you are. 2. The patient is scheduled to see Dr. Shetty in the outpatient setting next week to discuss furthe r therapy. She may elect to go back on cytotoxic chemotherapy such as Xeloda or simply for palliativ e care alone, which may be appropriate in this elderly patient with a long prior treatment history. Thank for this consultation. We will continue to follow the patient with you while she is in the [facility] /[id number]/MODL
[2017-01-28] MEDS: D5W NS 1,000 ML IV SCH (12:37)
[2017-01-28] MEDS: PIPERACILLIN/TAZO 2.25 GM/DEX 50 ML IV SCH ×2 (14:17→19:31)
[2017-01-28] MEDS: HYDROCODONE/HOMATROPINE HYCODAN 5 ML UDL PO PRN ×2 (15:41→20:11)
--- NOTE | 2017-01-28 15:51 | GHP ---
[f rep st] HISTORY AND PHYSICAL DATE OF ADMISSION: 01/27/2017 REASON FOR ADMISSION: Fall, pneumonia. HISTORY: Patient is an 86-year-old female with metastatic breast cancer. She is currently on a hiat us in between treatments. She has been doing very poorly, has been eating poorly, has been losing we ight and has become progressively weaker. She was at home today and stood up; had a syncopal episode , fell, and hit her head on the floor. She had some bleeding. She woke up quickly. Her severo led the office and she was directed to go to the emergency room where she is being admitted because s he is too weak to consider going home. PAST MEDICAL HISTORY: Significant for metastatic breast cancer, neurogenic bladder (requiring interm ittent catheterizations due to a failed bladder suspension surgery), osteoporosis, hypothyroidism, an d elevated coronary calcium score. REVIEW OF SYSTEMS: Remarkable that she has had no pain. She is very weak and tired and sleeps a lot . She has diminished appetite, but still does eat some. She has had a cough, which has been nonprod uctive. She has no fever or chills. She was recently on a 5 day course of Levaquin 500 mg daily for presumed bladder infection. She does have a chronic colonization in her bladder because she does in termittent catheterizations. She has previously been admitted for urosepsis. CURRENT MEDICATIONS ARE: Simvastatin 40 mg daily, levothyroxine 50 mcg daily, mupirocin ointment as needed to her nostrils, ipratropium nasal inhaler as needed, elemental folate 7.5 mg daily, albuterol as needed, aspirin 81 mg daily, Ocuvite, and Ritalin 5 mg twice daily on an empty stomach. PHYSICAL EXAMINATION: GENERAL: A weak 86-year-old in no obvious distress. VITAL SIGNS: Blood pres sure 125/73, pulse 99 and regular, respirations 18, oxygen saturation 87% on room air, temperature is 97.5. CONSTITUTIONAL: Alert and appropriate, although she is very weak. HEENT: Pupils equal and reactive. LUNGS: Some rales in the right base. HEART: Regular rate and rhythm with a faint systol ic murmur. ABDOMEN: Nontender. Bowel sounds were normal. She has breast prostheses. EXTREMITIES: Peripheral pulses were diminished. She has no peripheral edema. She moves all extremities well. DIAGNOSTICS: Review of chest x-ray finds worsening of severe osseous metastatic disease. Poor inspi ratory depth with possible progression of interstitial lung abnormality; however, I am highly suspici ous of a right lower lobe pneumonia. Her baseline oxygen saturation is 92% on room air; therefore, 8 7% reflects a significant level of desaturation compared to her baseline. PLAN: Will admit. Will hydrate. She has previously initiated a no CPR Advance Directive, and this will be respected. Will place on IV antibiotics and observe closely. /[id number]/MODL
--- NOTE | 2017-01-28 17:16 | ASMTCMCOM ---
CM Note CM Note Notes: It is still too early to know what patients needs will be on discharge. Pt has UTI. She fell and has laceration and black eye. Currently also has high O2 needs. Case management will follow. Date Signed: 01/28/2017 05:15 PM Electronically Signed By:JANINA Aragon
[2017-01-29] MEDS: PIPERACILLIN/TAZO 2.25 GM/DEX 50 ML IV SCH ×4 (02:13→20:50)
[2017-01-29] MEDS: HEPARIN 5,000 UNIT/0.5 ML SYR SC SCH ×3 (06:17→21:51)
[2017-01-29] MEDS: HYDROCODONE/HOMATROPINE HYCODAN 5 ML UDL PO PRN ×2 (08:06→16:05)
--- NOTE | 2017-01-29 08:13 | SOAPPROG ---
SOAP Progress Note Assessment/Plan: Assessment: 86 yo female admitted following a syncopal episode during which she hit her head. CT negative for bleed, neuro grossly intact. Cxr demonstrates R sided pneumonia. On exam this morning, her cough is much stronger and remains productive. She is still quite weak and does not feel as though she has made improvement symptomatically. She has mild hematuria visualized in her elliott catheter, consistent with her recent UA. She has active breast cancer with metastases for which she is currently on a chemo hiatus with Dr. Shetty. Plan: Pneumonia- will recheck a cxr and labs this morning. Given lack of improvement will restart her on levaquin IV and continue the zosyn. Pending cxr results, may consider a trial dose of lasix to see if this gives her any symptomatic improvement. Generalized weakness- pt/ot to continue to follow, encourage ambulation as tolerated though she is quite weak at this time Elevated creatinine- continue slow fluids and encourage PO intake Breast cancer- currently on chemo hiatus, followed by Dr. Shetty Neurogenic bladder- straight caths prn at home, elliott inserted to ensure bladder emptying while on IVF Chronic pyuria- urine culture pending, see abx above 01/29/17 08:14 Subjective: Laurie is resting in bed this morning. She reports feeling quite weak this morning. She denies any pain. She is frustrated with her cough and current lack of energy. Objective: Vital Signs Temp Pulse Resp BP Pulse Ox 36.8 C 76 17 107/52 L 89 L 01/29/17 07:50 01/29/17 07:50 01/29/17 07:50 01/29/17 07:50 01/29/17 07:50 Laboratory Results 01/28/17 10:56 01/28/17 01/29/17 01/30/17 05:59 05:59 05:59 Intake Total 956 1485 Output Total 300 700 Balance 656 785 Gen- AAOx3, acutely ill appearing HEENT- sutured head lac to left eyebrow, no signs of infection, EOMI, PEERL Resp- coarse crackling to R lung field, productive cough during exam with white sputum CV- S1S2, no murmurs, rubs, gallops Extremities- warm, + pulses, no edema Skin- warm and dry Neuro- grossly intact, generalized fatigue/weakness ICD10 Worksheet Patient Problems: Problems Problem Status Onset Facial laceration Acute Syncope Acute Weakness Acute Dehydration Acute Metastatic breast cancer Acute Urinary tract infection Acute
[2017-01-29] MEDS: BENZONATATE 100 MG CAP PO PRN ×2 (09:51→12:53)
[2017-01-29 09:55] LABS: ADD DIFF? YES; ADD MORPH? NO; ADD SCAN? NO; ATYPICAL LYMPHOCYTE FLAG 0 (0-99); FRAGMENT RBC FLAG 0 (0-99); HEMATOCRIT 33.8 % (38.0-47.0); HEMOGLOBIN 11.1 g/dL (12.6-16.3); LEFT SHIFT FLG 70 (0-99); LIPEMIA HEMOLYSIS FLAG 80 (0-99); MEAN CELL HEMOGLOBIN 37.8 pg (27.9-34.1); MEAN CELL HEMOGLOBIN CONCENTR. 32.8 g/dL (32.4-36.7); MEAN PLATELET VOLUME 9.7 fL (8.7-11.7); PLATELET CLUMPS FLAG 0 (0-99); PLATELET COUNT 184 10^3/uL (150-400); RED BLOOD CELL COUNT 2.94 10^6/uL (4.18-5.33); RED CELL DISTRIBUTION WIDTH 17.5 % (11.5-15.2)
[2017-01-29 10:22] LABS: ANION GAP 7 mEq/L (8-16); CALCIUM 8.4 mg/dL (8.5-10.4); CARBON DIOXIDE 23 mEq/l (22-31); CHLORIDE 106 mEq/L (97-110); CREATININE 1.4 mg/dL (0.6-1.0); GLOMERULAR FILTRATION RATE 36; GLUCOSE 78 mg/dL (70-100); POTASSIUM 4.3 mEq/L (3.5-5.2); SODIUM 136 mEq/L (134-144)
[2017-01-29 10:56] LABS: MACROCYTES 2+; PLATELET ESTIMATE ADEQUATE (ADEQ); POLYCHROMASIA 1+
[2017-01-29] MEDS ORDERED: IOPAMIDOL (ISOVUE 370) 100 ML BTL IV ONE (11:06)
[2017-01-29] MEDS: D5W NS 1,000 ML IV SCH ×2 (12:27→20:47)
[2017-01-29] MEDS: IPRATROPIUM/ALBUTEROL 3 ML DEYVIAL IH SCH ×2 (12:34→18:03)
[2017-01-30] MEDS: BENZONATATE 100 MG CAP PO PRN ×4 (01:07→21:48)
[2017-01-30] MEDS: PIPERACILLIN/TAZO 2.25 GM/DEX 50 ML IV SCH ×2 (01:17→08:06)
[2017-01-30] MEDS: HYDROCODONE/HOMATROPINE HYCODAN 5 ML UDL PO PRN ×3 (01:31→14:38)
[2017-01-30] MEDS: IPRATROPIUM/ALBUTEROL 3 ML DEYVIAL IH SCH ×5 (01:38→19:10)
[2017-01-30 04:17] LABS: ADD DIFF? YES; ADD MORPH? NO; ADD SCAN? NO; ATYPICAL LYMPHOCYTE FLAG 0 (0-99); FRAGMENT RBC FLAG 0 (0-99); HEMATOCRIT 27.9 % (38.0-47.0); HEMOGLOBIN 9.2 g/dL (12.6-16.3); LEFT SHIFT FLG 40 (0-99); LIPEMIA HEMOLYSIS FLAG 80 (0-99); MEAN CELL HEMOGLOBIN 37.1 pg (27.9-34.1); MEAN CELL VOLUME 112.5 fL (81.5-99.8); MEAN PLATELET VOLUME 9.8 fL (8.7-11.7); PLATELET CLUMPS FLAG 0 (0-99); PLATELET COUNT 155 10^3/uL (150-400); RED BLOOD CELL COUNT 2.48 10^6/uL (4.18-5.33); RED CELL DISTRIBUTION WIDTH 17.1 % (11.5-15.2)
[2017-01-30 04:51] LABS: ANION GAP 7 mEq/L (8-16); CALCIUM 7.8 mg/dL (8.5-10.4); CARBON DIOXIDE 20 mEq/l (22-31); CHLORIDE 108 mEq/L (97-110); CREATININE 1.2 mg/dL (0.6-1.0); GLOMERULAR FILTRATION RATE 43; GLUCOSE 97 mg/dL (70-100); POTASSIUM 3.6 mEq/L (3.5-5.2); SODIUM 135 mEq/L (134-144)
[2017-01-30 05:24] LABS: MACROCYTES 2+; PLATELET ESTIMATE ADEQUATE (ADEQ); POLYCHROMASIA 1+
[2017-01-30] MEDS: LEVOTHYROXINE 100 MCG TAB PO SCH (06:23)
[2017-01-30] MEDS: HEPARIN 5,000 UNIT/0.5 ML SYR SC SCH ×3 (06:23→21:48)
--- NOTE | 2017-01-30 08:35 | SOAPPROG ---
SOAP Progress Note Assessment/Plan: Assessment: 86 yo female admitted Monday following a syncopal episode during which she hit her head. CT negative for bleed, neuro grossly intact. Cxr demonstrates R sided pneumonia. Pt just finished a course of levaquin for a UTI yesterday, so started her on zosyn for additional coverage. She has active breast cancer with metastases for which she is currently on a chemo hiatus with Dr. Shetty. Her oxygen requirements have gone up. CT is negative for PE. Infiltrates in lungs have increased. She may have interstitial edema. Plan: Pneumonia- continue antibiotics. Monitor O2 requirements, as it is not clinically improving, I will ask ID to take a look. Possible non-infectious interstitial edema, RO chf vs lymphangitic cancer, vs pneumonia. Will stop the IV. Generalized weakness- pt/ot to eval today, encourage ambulation as tolerated She is not sure that she will be able to get out of bed. Elevated creatinine- IVF overnight, createnien is down to 1.2. Will stop IV due to pulmonary interstitial fluid. slowed today due to increased O2 requirements, recheck BNP and monitor renal function Breast cancer- currently on chemo hiatus Neurogenic bladder- straight caths prn at home, elliott inserted Sat night to ensure bladder emptying while on IVF 01/28/17 09:57 01/30/17 08:28 Subjective: Slept OK last night. Needing 8 L of oxygen when she is having coughing spasms. Qihyso2q is poor. Feels too weak to get out of bed. Objective: Vital Signs Temp Pulse Resp BP Pulse Ox 99.0 F 82 18 109/63 99 01/30/17 07:11 01/30/17 07:11 01/30/17 07:11 01/30/17 07:11 01/30/17 07:11 Laboratory Results 01/30/17 03:44 01/30/17 03:44 01/29/17 01/30/17 01/31/17 05:59 05:59 05:59 Intake Total 1485 2325 Output Total 700 920 Balance 785 1405 CXR with increased diffuse infiltrates. Lungs with fine rales. Cough is present. mostly non-productive. ICD10 Worksheet Patient Problems: Problems Problem Status Onset Facial laceration Acute Syncope Acute Weakness Acute chronic disease mgmt/ transitional care Acute Dehydration Acute Metastatic breast cancer Acute Urinary tract infection Acute
[2017-01-30] MEDS: ACETAMINOPHEN 325 MG TAB PO PRN ×2 (08:55→21:48)
--- NOTE | 2017-01-30 10:58 | GCON ---
[f rep st] CONSULTATION INFECTIOUS DISEASES CONSULTATION DATE OF CONSULTATION: 01/30/2017 REFERRING PHYSICIAN: Christiano Khan MD REASON FOR CONSULTATION: Pneumonitis with a history of metastatic breast cancer. HISTORY OF PRESENT ILLNESS: The patient is an 86-year-old female with a past medical history of meta static breast cancer, most recently on treatment with letrozole and ribociclib, which was discontinue d several weeks ago, who I am asked to see in consultation for bilateral pneumonitis. The patient de scribes feeling weak for several weeks, which has slowly progressed and ultimately led to her having a syncopal episode at which point she fell and struck her left eye. She describes having intermitten t cough and progressive dyspnea. The cough has been productive with a milky-colored sputum. She has not had associated pleuritic chest pain. She does feel like she may have intermittent subjective fe vers without chills. No recent travel or animal exposure. She recently had been treated as an outpa tient with levofloxacin for a urinary tract infection. At the time of her admission, she was noted t o have bilateral infiltrates and started on Zosyn with concomitant levofloxacin. Ultimately, a chest CT was performed yesterday which shows bilateral ground-glass infiltrates with considerations includ ing noncardiogenic edema, opportunistic infection, drug reaction, or hemorrhage. The patient has not received influenza vaccine this season to date. She does note that she has had prior pneumococcal v accination. No known ill contacts. No prior tuberculosis exposure. Given the above findings, I am now asked to assist in her ongoing management. PAST MEDICAL HISTORY: Metastatic breast cancer as outlined above, prior history of sepsis, prior his tory of UTI, neurogenic bladder requiring intermittent catheterization, hypothyroidism. PAST SURGICAL HISTORY: Port placement, breast cancer surgery. CURRENT MEDICATIONS: Zosyn 2.25 g IV q.6 hours, levofloxacin 750 mg IV q.48 hours, Tessalon Perles a s needed, heparin 5000 units subcu q.8 hours, Hycodan as needed, Synthroid 100 mcg p.o. 3 times per w [facility] and 50 mcg p.o. 4 times per week. ALLERGIES: No known drug allergies. SOCIAL HISTORY: Patient does not smoke. She drinks alcohol rarely. No drug use. No recent travel or animal exposure. She is originally from [place] and has lived in [place] and [place]. FAMILY HISTORY: Father in a car accident. REVIEW OF SYSTEMS: Outside that noted in the HPI, remainder of 10 system review is unremarkable. PHYSICAL EXAMINATION: VITAL SIGNS: Temperature maximum 38.1, temperature current 37.2, heart rate i s 82, respiratory rate 18, blood pressure 109/63, oxygen saturation 99% on 8 L. GENERAL: Patient is chronically ill appearing with mild increase in respiratory effort; she appears nontoxic. HEENT: T here is no scleral icterus, conjunctival injection, or conjunctival petechiae. There is ecchymosis a round the left eye. Oropharynx shows dry mucous membranes without thrush. There is no nasal dischar ge. There is no tenderness over the sinuses. NECK: Supple without palpable lymphadenopathy or thyr omegaly. CHEST: There are diffuse crackles, most prominent in the left lung field. Respiratory eff ort is mildly increased. A port is present in the left upper chest without erythema. CARDIOVASCULAR : Regular rate and rhythm without murmurs, gallops, or rubs. ABDOMEN: Soft, nontender, nondistende d. There is no palpable organomegaly. Bowel sounds are present. MUSCULOSKELETAL: There is trace l ower extremity edema. No cyanosis or clubbing. SKIN: See HEENT exam. There are no stigmata of end ocarditis. There is dry flaking skin over the feet bilaterally with erythematous toes bilaterally. NEUROLOGIC: Patient is alert and interacts appropriately with the examiner. Cranial nerves 2-12 are grossly intact. Sensation is grossly intact. Muscle tone is normal with decreased bulk throughout. LYMPHATICS: No cervical or supraclavicular nodes palpable. LABORATORY DATA: White blood cell count 10.8, hematocrit 27.9, platelets 155, neutrophils 72%, lymph ocytes 11%. Serum creatinine is 1.2, which is decreased from peak of 1.5. Urinalysis shows 25-50 re d blood cells and white blood cells. The urine culture is showing no growth to date. Chest CT is re viewed and interpreted by me with Radiology today showing bilateral ground-glass opacities with some sparing of the periphery. Head CT showed no acute intracranial findings. IMPRESSION: Bilateral pneumonitis in an immunosuppressed host due to recent chemotherapy and underly ing metastatic cancer: Differential diagnosis is broad and includes infectious and noninfectious faye ologies. CT pattern is not overtly suggestive of typical agent of community-acquired pneumonia given its ground-glass appearance. Atypical pathogens including Legionella are considerations. Influenza or other viral pathogens are also of consideration. Pneumocystis would also be in the differential diagnosis. Fungal etiology is also of consideration although suspect less likely. Noninfectious faye ologies such as organizing pneumonia or drug toxicity also possible. Metastatic cancer also in the d ifferential diagnosis. Other consideration would be noncardiogenic edema. RECOMMENDATIONS: 1. We will change Zosyn to ceftriaxone for typical targeted activity against pathogens of community- acquired pneumonia given that Pseudomonas should be of low likelihood. 2. Azithromycin 500 mg IV daily. 3. Discontinue levofloxacin given its recent use. 4. Respiratory pathogen panel by PCR. 5. Urine Legionella antigen. 6. Check procalcitonin. 7. Blood cultures x2 sets. 8. If the above is unrevealing and no clinical improvement, would need to proceed with Pulmonary con sultation with consideration for bronchoscopy. Thank you for this consultation. We will continue to follow the patient with you. /[id number]/MODL
--- NOTE | 2017-01-30 12:08 | SOAPPROG ---
SOAP Progress Note Assessment/Plan: Assessment: 1. Stage 4 breast ca with liver and bone mets, s/p multiple lines of therapy 2. pulmonary infiltrates 3. general weakness, syncopal spell Plan:Continue to follow for now, per ID and IM 01/30/17 12:05 Subjective: Very alert, weak Objective: Vital Signs Temp Pulse Resp BP Pulse Ox 98.6 F 88 18 109/63 98 01/30/17 11:50 01/30/17 11:50 01/30/17 07:11 01/30/17 07:11 01/30/17 11:50 Microbiology 01/28/17 12:33 Urine Culture - Final Urine,Catheterized Laboratory Results 01/30/17 03:44 01/30/17 03:44 01/29/17 01/30/17 01/31/17 05:59 05:59 05:59 Intake Total 1485 2325 200 Output Total 700 920 Balance 785 1405 200 Physical Exam - Physical Exam General Appearance: alert, no apparent distress ICD10 Worksheet Patient Problems: Problems Problem Status Onset Facial laceration Acute Syncope Acute Weakness Acute chronic disease mgmt/ transitional care Acute Dehydration Acute Metastatic breast cancer Acute Urinary tract infection Acute
[2017-01-31] MEDS: IPRATROPIUM/ALBUTEROL 3 ML DEYVIAL IH SCH ×5 (00:35→23:05)
[2017-01-31] MEDS: LEVOTHYROXINE 100 MCG TAB PO SCH (05:08)
[2017-01-31] MEDS: LEVOTHYROXINE 50 MCG TAB PO SCH (05:08)
[2017-01-31] MEDS: HEPARIN 5,000 UNIT/0.5 ML SYR SC SCH ×3 (05:08→21:00)
[2017-01-31] MEDS: BENZONATATE 100 MG CAP PO PRN ×3 (05:09→22:58)
[2017-01-31] MEDS: HYDROCODONE/HOMATROPINE HYCODAN 5 ML UDL PO PRN ×2 (11:45→21:00)
[2017-01-31] MEDS: AZITHROMYCIN IV 500 MG in D5W 250 ML IV SCH (11:45)
--- NOTE | 2017-01-31 12:38 | SOAPPROG ---
SOAP Progress Note Assessment/Plan: Assessment: 1. Stage 4 breast ca with liver and bone mets, s/p multiple lines of therapy 2. pulmonary infiltrates 3. general weakness, syncopal spell Plan:Having reviewed her records, she has been through multiple lines of therapy , I discussed with her and her that I thought it would be very unlikely that further treatment of her breast cancer would be effective 01/30/17 12:05 01/31/17 12:36 Subjective: Weak, coughing very alert Objective: Vital Signs Temp Pulse Resp BP Pulse Ox 97.6 F 81 18 122/65 H 100 01/31/17 08:06 01/31/17 08:06 01/31/17 08:06 01/31/17 08:06 01/31/17 08:06 Microbiology 01/30/17 11:25 - Final Sputum, Expectorated Sputum Culture - Final 01/30/17 11:35 Respiratory Panel (PCR) - Final Nasal, Sinus - Swab No Organism Detected 01/28/17 12:33 Urine Culture - Final Urine,Catheterized Laboratory Results 01/30/17 03:44 01/30/17 03:44 01/30/17 01/31/17 02/01/17 05:59 05:59 05:59 Intake Total 2325 500 500 Output Total 920 600 Balance 1405 -100 500 ICD10 Worksheet Patient Problems: Problems Problem Status Onset Facial laceration Acute Pneumonia Acute Syncope Acute Weakness Acute chronic disease mgmt/ transitional care Acute Dehydration Acute Metastatic breast cancer Acute Urinary tract infection Acute
--- NOTE | 2017-01-31 13:35 | SOAPPROG ---
SOAP Progress Note Assessment/Plan: Assessment: This is a very pleasant 86 yo female who was admitted on 01/27 following a syncopal episode at home, during which she suffered a laceration to above the left eye. 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 Bee. She also has a hx of neurogenic bladder and hypothyroidism. On admission, CXR demonstrated R sided atelectasis, and ultimately a CT demonstrated bilat ground-glass infiltrates with considerations including non-cardiogenic edema, infection, drug reaction or hemorrhage. She was seen yesterday by infectious disease (greatly appreciate assistance) who switched her abx to ceftriaxone and continued azithromycin, and will plan for pulm consult if no response to these abx changes. Plan: Acute pneumonia - continue current abx regimen (azithro and ceftriaxone), follow white count, electrolytes, await resp panel PCR Head laceration - sutured, without signs of infection or complication Neuorgenic bladder - pt straight caths at home, currently with indwelling elliott in place Hypothyroid - managed outpt, on home dose of levothyroxine Stage IV breast cancer with liver and bone metastases - followed by Dr. Bee ( appreciate assistance!) who at this time does not feel that further treatment will benefit patient. He discussed this today with pt and her . Will place a palliative consult as per Rosa, the curtain inspector, Laurie and her are very interested in discussing palliative options and making sure that Laurie is comfortable Dispo - will likely need SNF placement acutely, per pts - may need longer term placement depending on pts recovery from this acute illness due to his limited abilities to care for her at home 01/31/17 13:47 01/31/17 13:50 Subjective: Laurie is resting in bed on exam today. She says that she is still experiencing a productive cough, but notes that the cough medicines have helped. She still feels quite weak and is not enthusiastic about getting up out of bed, but will consider trying to sit in the chair later today. Her appetite has been minimal, though she has not found the food to be overly appealing. Objective: Vital Signs Temp Pulse Resp BP Pulse Ox 37.2 C 113 H 40 H 118/56 L 95 01/31/17 13:02 01/31/17 13:02 01/31/17 13:02 01/31/17 13:02 01/31/17 13:02 Microbiology 01/30/17 11:25 - Final Sputum, Expectorated Sputum Culture - Final 01/30/17 11:35 Respiratory Panel (PCR) - Final Nasal, Sinus - Swab No Organism Detected 01/28/17 12:33 Urine Culture - Final Urine,Catheterized Laboratory Results 01/30/17 03:44 01/30/17 03:44 01/30/17 01/31/17 02/01/17 05:59 05:59 05:59 Intake Total 2325 500 500 Output Total 920 600 Balance 1405 -100 500 Gen- AAOx3 HEENT- ecchymosis to tissue surrounding L eye, sutured laceration above L eye without complication Resp- R sided rales, though more fine today as compared to previous days CV- regular rate, mildly tachycardic in 110s, no murmurs, rubs, gallops Abd- SNT Extremities- warm, without edema Neuro- grossly intact ICD10 Worksheet Patient Problems: Problems Problem Status Onset Facial laceration Acute Pneumonia Acute Syncope Acute Weakness Acute chronic disease mgmt/ transitional care Acute Dehydration Acute Metastatic breast cancer Acute Urinary tract infection Acute
--- NOTE | 2017-01-31 13:43 | PCMIDPN ---
Assessment/Plan: Assessment/Plan: 1. Bilateral pulm infiltrates in immunocompromised patient: - infectious work up in progress, pending -currently on ceftriaxone + azithro. - wbc improved. -REsp viral pathogen negative -blood cx pending - Legionella U Ag, PJP pending -Consider pulm consult/bronch if doens't improve -care coordinated with BUD Thomas Ceftraixone 1g daily azithro 500mg daily Subjective: afebrile. productive cough, white. on o2 via nc. denies abd pain or diarrhea. feeling a little better today than past several days. Objective: Vital Signs Temp Pulse Resp BP Pulse Ox 37.2 C 113 H 40 H 118/56 L 95 01/31/17 13:02 01/31/17 13:02 01/31/17 13:02 01/31/17 13:02 01/31/17 13:02 Microbiology 01/30/17 11:25 - Final Sputum, Expectorated Sputum Culture - Final 01/30/17 11:35 Respiratory Panel (PCR) - Final Nasal, Sinus - Swab No Organism Detected 01/28/17 12:33 Urine Culture - Final Urine,Catheterized Laboratory Results 01/30/17 03:44 01/30/17 03:44 01/30/17 01/31/17 02/01/17 05:59 05:59 05:59 Intake Total 2325 500 500 Output Total 920 600 Balance 1405 -100 500 - Physical Exam General Appearance: alert, no apparent distress Respiratory: coarse breath sounds Cardiac/Chest: regular rate, rhythm Extremities: No swelling Abdomen: normal bowel sounds, non-tender, soft, No distended Skin: No rash ICD10 Worksheet Patient Problems: Problems Problem Status Onset Facial laceration Acute Pneumonia Acute Syncope Acute Weakness Acute chronic disease [facility]/ transitional care Acute Dehydration Acute Metastatic breast cancer Acute Urinary tract infection Acute
[2017-01-31] MEDS: D5W 1/2 NS 1,000 ML IV SCH (15:15)
[2017-01-31 16:21] LABS: ABSOLUTE NRBC COUNT 0.04 10^3/uL (0-0.01); ADD DIFF? YES; ADD MORPH? NO; ADD SCAN? NO; ATYPICAL LYMPHOCYTE FLAG 0 (0-99); FRAGMENT RBC FLAG 10 (0-99); HEMATOCRIT 27.9 % (38.0-47.0); HEMOGLOBIN 9.2 g/dL (12.6-16.3); LEFT SHIFT FLG 50 (0-99); LIPEMIA HEMOLYSIS FLAG 80 (0-99); MEAN CELL HEMOGLOBIN 36.7 pg (27.9-34.1); MEAN CELL VOLUME 111.2 fL (81.5-99.8); MEAN PLATELET VOLUME 9.8 fL (8.7-11.7); NRBC-AUTO% 0.3 % (0.0-0.2); PLATELET CLUMPS FLAG 0 (0-99); PLATELET COUNT 192 10^3/uL (150-400); RED BLOOD CELL COUNT 2.51 10^6/uL (4.18-5.33); RED CELL DISTRIBUTION WIDTH 16.8 % (11.5-15.2)
--- NOTE | 2017-01-31 16:48 | ASMTCMCOM ---
CM Note CM Note Notes: Met with patients who says he spoke with Marta Bailey from [facility] who had talked with him briefly about Palliative. Spouse stated that he had done a lot of thinking about his own desires at end of life but that the patient, his , never wanted to talk about it. He reports that she owns the house and other assets but has no will and no advanced directives. He says he has been working with an admitted attorneys recently but is unsure how these discussions will apply to his . He said their daughter who was 62 in September from lung cancer. They also have a son who lives in [facility] that he has not spoken to in twenty years. He said two of their grandchildren were here this last weekend, one from [place] and another , I believe from [place] or [place]. Patients spouse said he is agreeing to a Palliative consult with Risa on . 02/01. Case managment will continue to follow. Date Signed: 01/31/2017 04:47 PM Electronically Signed By:JANINA Aragon
[2017-01-31 17:59] LABS: ANION GAP 4 mEq/L (8-16); CALCIUM 8.5 mg/dL (8.5-10.4); CARBON DIOXIDE 22 mEq/l (22-31); CHLORIDE 105 mEq/L (97-110); CREATININE 1.1 mg/dL (0.6-1.0); GLOMERULAR FILTRATION RATE 47; GLUCOSE 89 mg/dL (70-100); LACTATE DEHYDROGENASE 1858 IU/L (313-618); POTASSIUM 3.7 mEq/L (3.5-5.2); SODIUM 131 mEq/L (134-144)
[2017-01-31 18:19] LABS: MACROCYTES 2+; MICROCYTES 1+; PLATELET ESTIMATE ADEQUATE (ADEQ); SCHISTOCYTES 1+; TOXIC GRANULATION PRESENT
--- NOTE | 2017-01-31 22:50 | SOAPPROG ---
SOAP Progress Note Assessment/Plan: Assessment: Pt is doing poorly with increased oxygen demand. It is possible that there is an opportunistic apolonia infection contributing to pulmonary issue. 01/28/17 09:57 01/30/17 08:28 01/31/17 22:49 01/31/17 22:50 Plan: Will initiate fluconazole and see if status improves. Objective: Vital Signs Temp Pulse Resp BP Pulse Ox 98.5 F 104 H 36 H 129/76 H 80 L 01/31/17 19:58 01/31/17 19:58 01/31/17 19:58 01/31/17 19:58 01/31/17 19:58 Laboratory Results 01/31/17 16:07 01/31/17 16:07 01/30/17 01/31/17 02/01/17 05:59 05:59 05:59 Intake Total 2325 500 643 Output Total 920 600 250 Balance 1405 -100 393 ICD10 Worksheet Patient Problems: Problems Problem Status Onset Facial laceration Acute Pneumonia Acute Syncope Acute Weakness Acute chronic disease mgmt/ transitional care Acute Dehydration Acute Metastatic breast cancer Acute Urinary tract infection Acute
[2017-01-31] MEDS: FLUCONAZOLE/NaCl 100 ML IV SCH (23:14)
[2017-02-01] MEDS: HYDROCODONE/HOMATROPINE HYCODAN 5 ML UDL PO PRN ×4 (04:49→19:23)
[2017-02-01] MEDS: HEPARIN 5,000 UNIT/0.5 ML SYR SC SCH ×3 (04:49→20:51)
[2017-02-01] MEDS: D5W 1/2 NS 1,000 ML IV SCH (04:57)
[2017-02-01] MEDS: IPRATROPIUM/ALBUTEROL 3 ML DEYVIAL IH SCH ×4 (05:50→23:36)
[2017-02-01] MEDS: AZITHROMYCIN IV 500 MG in D5W 250 ML IV SCH (08:13)
--- NOTE | 2017-02-01 08:55 | SOAPPROG ---
SOAP Progress Note Assessment/Plan: Assessment: 86 yo female admitted following a syncopal episode during which she hit her head. CT negative for bleed, neuro grossly intact. Cxr demonstrates R sided pneumonia. On exam this morning, her cough is much stronger and remains productive. She is still quite weak and does not feel as though she has made improvement symptomatically. She has mild hematuria visualized in her elliott catheter, consistent with her recent UA. She has active breast cancer with metastases for which she is currently on a chemo hiatus with Dr. Shetty. Plan: Pneumonia- will recheck a cxr and labs this morning. Given lack of improvement will restart her on levaquin IV and continue the zosyn. Pending cxr results, may consider a trial dose of lasix to see if this gives her any symptomatic improvement. Generalized weakness- pt/ot to continue to follow, encourage ambulation as tolerated though she is quite weak at this time Elevated creatinine- continue slow fluids and encourage PO intake Breast cancer- currently on chemo hiatus, followed by Dr. Shetty Neurogenic bladder- straight caths prn at home, elliott inserted to ensure bladder emptying while on IVF Chronic pyuria- urine culture pending, see abx above 01/29/17 08:14 02/01/17 08:52 pneumonia/pneumonitis--clinically improving. Positivity is returning this am. WBC is up a bit. Fluconazole added yesterday. Wean oxygen as tolerated long mahan with BRCA with bony mets. Little more to offer from oncology per interpretation. patient really hasn't thought much about end of life issues. She jokes there is no need as she "isn't going to " Palliative care consult is pending today. This may be challenging for patient Subjective: The patient feels a bit better this am. Minimal appetite--not new. Cough is frequent and predominantly dry. No real SOB. No GI complaints. No pain Objective: Vital Signs Temp Pulse Resp BP Pulse Ox 36.8 C 80 16 123/69 H 99 02/01/17 08:02 02/01/17 08:02 02/01/17 08:02 02/01/17 08:02 02/01/17 08:02 Laboratory Results 01/31/17 16:07 01/31/17 16:07 01/31/17 02/01/17 02/02/17 05:59 05:59 05:59 Intake Total 500 1513 Output Total 600 400 Balance -100 1113 Gen: brighter, more positive HEENT: talks easily through oxygen mask Lungs: less coarse, cough mostly dry Heart: RRR Abd + bs soft WBC increase from yesterday Oxygen requirements stable at moderately high 6 lpm in upper 90's currently ICD10 Worksheet Patient Problems: Problems Problem Status Onset Facial laceration Acute Pneumonia Acute Syncope Acute Weakness Acute chronic disease mgmt/ transitional care Acute Dehydration Acute Metastatic breast cancer Acute Urinary tract infection Acute
--- NOTE | 2017-02-01 09:23 | SOAPPROG ---
SOAP Progress Note Assessment/Plan: Assessment: 1. Stage 4 breast ca with liver and bone mets, s/p multiple lines of therapy 2. pulmonary infiltrates, still coughing, Diflucan added 3. general weakness, syncopal spell Plan:Having reviewed her records, she has been through multiple lines of therapy , I discussed with her and her that I thought it would be very unlikely that further treatment of her breast cancer would be effective. Palliative care consult today. 01/30/17 12:05 01/31/17 12:36 02/01/17 09:22 Objective: Vital Signs Temp Pulse Resp BP Pulse Ox 98.2 F 80 16 123/69 H 99 02/01/17 08:02 02/01/17 08:02 02/01/17 08:02 02/01/17 08:02 02/01/17 08:02 Laboratory Results 01/31/17 16:07 01/31/17 16:07 01/31/17 02/01/17 02/02/17 05:59 05:59 05:59 Intake Total 500 1513 Output Total 600 400 Balance -100 1113 ICD10 Worksheet Patient Problems: Problems Problem Status Onset Facial laceration Acute Pneumonia Acute Syncope Acute Weakness Acute chronic disease mgmt/ transitional care Acute Dehydration Acute Metastatic breast cancer Acute Urinary tract infection Acute
[2017-02-01] MEDS: FLUCONAZOLE/NaCl 100 ML IV SCH (10:06)
--- NOTE | 2017-02-01 11:39 | PCMIDPN ---
Assessment/Plan: Assessment/Plan: * Bilateral pneumonitis: Clinically without significant interval change. Diagnostic assessment by respiratory pathogen PCR, Legionella antigen, and sputum for Pneumocystis all negative. Diagnostic considerations continue to include infectious and non infectious etiologies. Procalcitonin is elevated which is more suggestive of infectious cause. Will obtain serum cryptococcal and Aspergillus antigen. Continue ceftriaxone and azithromycin. Would favor observing without addition of fluconazole given that Rosa highly unusual cause of pneumonia and typically seen in the setting of severe immunosuppression such as bone marrow transplantation. Await palliative care conference. Repeat chest x-ray to assess status of infiltrates. If further aggressive care pursued, next step would include pulmonary consultation for bronchoscopy with possible transbronchial biopsy if feasible. 02/01/17 11:36 Subjective: Patient feels about the same. Still with cough and shortness of breath although feels slightly more energetic. Objective: Vital Signs Temp Pulse Resp BP Pulse Ox 36.8 C 80 16 123/69 H 99 02/01/17 08:02 02/01/17 08:02 02/01/17 08:02 02/01/17 08:02 02/01/17 08:02 Laboratory Results 01/31/17 16:07 01/31/17 16:07 01/31/17 02/01/17 02/02/17 05:59 05:59 05:59 Intake Total 500 1513 Output Total 600 400 Balance -100 1113 Ceftriaxone # 3 Azithromycin # 3 Sputum for PCP negative - reviewed with pathology by me today Urine Legionella antigen negative Respiratory pathogen PCR negative Blood cultures x2 no growth - Physical Exam General Appearance: alert, non-toxic EENT: No scleral icterus, No thrush, No conjunctival petechiae Respiratory: crackles (Bilateral), other (Mildly increased respiratory effort with frequent cough present) Cardiac/Chest: regular rate, rhythm Abdomen: non-tender, No distended ICD10 Worksheet Patient Problems: Problems Problem Status Onset Facial laceration Acute Pneumonia Acute Syncope Acute Weakness Acute chronic disease mgmt/ transitional care Acute Dehydration Acute Metastatic breast cancer Acute Urinary tract infection Acute
[2017-02-01] MEDS: BENZONATATE 100 MG CAP PO PRN (12:39)
--- NOTE | 2017-02-01 16:16 | ASMTCMCOM ---
CM Note CM Note Notes: Spoke with BLESSING Diaz in palliative care following consult with pt and today. can no longer care for pt at home so is looking for private pay LTC bed for pt. [facility] only has semi-pvt rooms and [facility] does not have ltc beds. C/M will f.u with tomorrow. Date Signed: 02/01/2017 04:16 PM Electronically Signed By:Humaira Lao LCSW
--- NOTE | 2017-02-01 17:27 | PDPCPN ---
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 Suffered facial fracture with ct head negative for acute issues. Found to be hypoxic and being treated for PNA/pneumonitis. Follows with [facility] Dr Shetty with most recent treatment stopped due to functional decline and has been on hold. Oncology saw and no treatments options available at this time. Palliative care consulted for complex medical decision making. met with Corey and her Dai at the bedside this afternoon. Dai shared his concern for not being able to care for corey at home anymore. Corey feels she got herself run down and as such she has been weaker recently at home but is hoping she will improve. Corey and her have a pretty good understanding of her medical condition. She understands there is no treatment available for her cancer and admits even the last treatment was not expecting to help much. We discussed goals and Corey would prefer to be at home but is not a major decision for her. She realizes she is close to end of life and that because of her cancer she will . She does not feel that is anytime soon. We did discuss options including hospice care but Corey does not feel she is hospice appropriate at this time. She is hoping with treatment of her PNA/ pneumonitis she will improve a bit to be able to care for herself a little bit more. Discussed discharge options including SNF which dai would prefer [facility] or another similar facility that has multiple levels of care including for himself. We discussed if Corey were to decline and potentially worsen in her condition she stated she would do whatever her doctors thought would be best for her. She very much values the opinions and decisions of her physicians regarding her future care. Assessment: Physical: - Pain: denies pain -tylenol PRN - Dyspnea: with cough - oxygen as needed - on tessalon pearles and hycodan - also getting nebs - weakness - PT/OT as able - constipation - at risk if using hycodan recommend continuing bowel regimen with senna and colace while on opiates Emotional/psychological: doing ok. Has good support from . Advanced Care Planning: Is patient decisional?: yes Code Status: DNR POA: Dai is MDPOA. Plan: Corey is hoping to improve in her symptoms so she can have some good quality of life again. snf planning for additional support and care. Potential for LTC at SNF like [facility]. Not ready for hospice care yet. Subjective: I'm feeling better Objective: Social History: to Dai. Has lived in [place] since [address]. Was raised in [place] and [place]. 2 children, 1 daughter from lung cancer recently and 1 son who is estranged. Medication list reviewed ROS: General: fatigue, weakness, weight loss ENT: dry mouth Resp: dyspnea, cough GI: poor appetite : negative MS: negative Skin: negative Neuro: negative Psych: negative Functional assessment: PPS: 40% Functional status: dependent on ADLs, IADLs Vital Signs Temp Pulse Resp BP Pulse Ox 37.4 C 92 16 114/70 98 02/01/17 16:16 02/01/17 16:16 02/01/17 16:16 02/01/17 16:16 02/01/17 16:16 Laboratory Results 01/31/17 16:07 01/31/17 16:07 01/31/17 02/01/17 02/02/17 05:59 05:59 05:59 Intake Total 500 1513 Output Total 600 400 Balance -100 1113 Physical Exam - Physical Exam General Appearance: alert, no apparent distress Respiratory: No respiratory distress, No accessory muscle use Skin: normal color, warm/dry Extremities: No pedal edema Neuro/Psych: alert, oriented x 3 ICD10 Worksheet Patient Problems: Problems Problem Status Onset Facial laceration Acute Palliative care encounter Acute Pneumonia Acute Syncope Acute Weakness Acute chronic disease mgmt/ transitional care Acute Dehydration Acute Metastatic breast cancer Acute Urinary tract infection Acute - ICD10 Problem Qualifiers (1) Palliative care encounter
[2017-02-01] MEDS: ACETAMINOPHEN 325 MG TAB PO PRN (19:22)
[2017-02-02] MEDS: LEVOTHYROXINE 50 MCG TAB PO SCH (04:35)
[2017-02-02] MEDS: HEPARIN 5,000 UNIT/0.5 ML SYR SC SCH ×3 (04:35→21:46)
[2017-02-02] MEDS: HYDROCODONE/HOMATROPINE HYCODAN 5 ML UDL PO PRN ×3 (04:37→18:07)
[2017-02-02] MEDS: D5W 1/2 NS 1,000 ML IV SCH (04:37)
[2017-02-02 05:08] LABS: ABSOLUTE NRBC COUNT 0.03 10^3/uL (0-0.01); ADD DIFF? YES; ADD MORPH? NO; ADD SCAN? NO; ATYPICAL LYMPHOCYTE FLAG 0 (0-99); FRAGMENT RBC FLAG 0 (0-99); HEMATOCRIT 26.8 % (38.0-47.0); HEMOGLOBIN 8.9 g/dL (12.6-16.3); LEFT SHIFT FLG 80 (0-99); LIPEMIA HEMOLYSIS FLAG 80 (0-99); MEAN CELL HEMOGLOBIN 36.9 pg (27.9-34.1); MEAN CELL HEMOGLOBIN CONCENTR. 33.2 g/dL (32.4-36.7); MEAN CELL VOLUME 111.2 fL (81.5-99.8); MEAN PLATELET VOLUME 10.3 fL (8.7-11.7); NRBC-AUTO% 0.3 % (0.0-0.2); PLATELET CLUMPS FLAG 0 (0-99); PLATELET COUNT 175 10^3/uL (150-400); RED BLOOD CELL COUNT 2.41 10^6/uL (4.18-5.33)
[2017-02-02 05:26] LABS: ALANINE AMINOTRANSFERASE 39 IU/L (9-52); ALBUMIN 1.9 g/dL (3.5-5.0); ALKALINE PHOSPHATASE 296 IU/L (38-126); ANION GAP 6 mEq/L (8-16); ASPARTATE AMINOTRANSFERASE 107 IU/L (14-46); BILIRUBIN,TOTAL 0.6 mg/dL (0.1-1.4); CALCIUM 7.6 mg/dL (8.5-10.4); CARBON DIOXIDE 24 mEq/l (22-31); CHLORIDE 105 mEq/L (97-110); CREATININE 0.9 mg/dL (0.6-1.0); GLOMERULAR FILTRATION RATE 59; GLUCOSE 80 mg/dL (70-100); POTASSIUM 3.5 mEq/L (3.5-5.2); SODIUM 135 mEq/L (134-144); TOTAL PROTEIN 3.9 g/dL (6.3-8.2)
[2017-02-02] MEDS: IPRATROPIUM/ALBUTEROL 3 ML DEYVIAL IH SCH ×4 (05:27→22:07)
[2017-02-02 05:56] LABS: ELLIPTOCYTES 1+; KERATOCYTES 1+; MACROCYTES 1+; MICROCYTES 1+; PLATELET ESTIMATE ADEQUATE (ADEQ); POLYCHROMASIA 1+; SCHISTOCYTES 1+
[2017-02-02 06:12] LABS: PROCALCITONIN 6.41 ng/mL (0.02-0.10)
--- NOTE | 2017-02-02 09:04 | SOAPPROG ---
SOAP Progress Note Assessment/Plan: Assessment: 86 yo female admitted following a syncopal episode during which she hit her head. CT negative for bleed, neuro grossly intact. Cxr demonstrates R sided pneumonia. On exam this morning, her cough is much stronger and remains productive. She is still quite weak and does not feel as though she has made improvement symptomatically. She has mild hematuria visualized in her elliott catheter, consistent with her recent UA. She has active breast cancer with metastases for which she is currently on a chemo hiatus with Dr. Shetty. Plan: Pneumonia- will recheck a cxr and labs this morning. Given lack of improvement will restart her on levaquin IV and continue the zosyn. Pending cxr results, may consider a trial dose of lasix to see if this gives her any symptomatic improvement. Generalized weakness- pt/ot to continue to follow, encourage ambulation as tolerated though she is quite weak at this time Elevated creatinine- continue slow fluids and encourage PO intake Breast cancer- currently on chemo hiatus, followed by Dr. Shetty Neurogenic bladder- straight caths prn at home, elliott inserted to ensure bladder emptying while on IVF Chronic pyuria- urine culture pending, see abx above 01/29/17 08:14 02/01/17 08:52 pneumonia/pneumonitis--clinically improving. Positivity is returning this am. WBC is up a bit. Fluconazole added yesterday. Wean oxygen as tolerated long mahan with BRCA with bony mets. Little more to offer from oncology per interpretation. patient really hasn't thought much about end of life issues. She jokes there is no need as she "isn't going to " Palliative care consult is pending today. This may be challenging for patient 02/02/17 09:02 pneumonia/pneumonitis--she is feeling better, WBC improving, CXR still complex. Will d/c fluids as she seems to be doing ok with po. This will hopefully potentially gradually decongest her lungs. Increase activity. Patient knows she needs to move more and will participate in therapy BRCA with mets. no real treatment options palliative care consult yesterday appreciated. Patient not ready for hospice per patient placement plans in progress Subjective: Laurie states she is feeling better. Cough is persistent, but responds adequately to suppressants. No SOB. Appetite remains to be low. No recent BM , no GI complaints. She thinks she can keep up on fluids on her own. She knows she needs to become more active Objective: Vital Signs Temp Pulse Resp BP Pulse Ox 36.6 C 84 32 H 112/73 95 02/02/17 08:00 02/02/17 08:00 02/02/17 08:00 02/02/17 08:00 02/02/17 08:00 Laboratory Results 02/02/17 04:32 02/02/17 04:32 02/01/17 02/02/17 02/03/17 05:59 05:59 05:59 Intake Total 1513 900 Output Total 400 850 Balance 1113 50 Gen: Brighter HEENT: no acute changes Lungs: coarse BS, mildly, sl productive cough Heart: RRR Abd + bs soft LE's no edema CXR yesterday: pneumonitis, poss increased pulmonary edema. WBC improved CMP cr 0.9 AST mildly elevated ICD10 Worksheet Patient Problems: Problems Problem Status Onset Facial laceration Acute Palliative care encounter Acute Pneumonia Acute Syncope Acute Weakness Acute chronic disease mgmt/ transitional care Acute Dehydration Acute Metastatic breast cancer Acute Urinary tract infection Acute
[2017-02-02] MEDS: FLUCONAZOLE/NaCl 100 ML IV SCH (09:19)
[2017-02-02] MEDS: AZITHROMYCIN IV 500 MG in D5W 250 ML IV SCH (09:20)
--- NOTE | 2017-02-02 10:38 | SOAPPROG ---
SOAP Progress Note Assessment/Plan: Assessment: 1. Stage 4 breast ca with liver and bone mets, s/p multiple lines of therapy 2. pulmonary infiltrates, still coughing but overall a bit better 3. general weakness, syncopal spell Plan:per internal medicine, could follow up with Dr Shetty as an outpt. 01/30/17 12:05 01/31/17 12:36 02/01/17 09:22 02/02/17 10:36 Subjective: Feels a bit better, cough decreased, still quite weak Objective: Vital Signs Temp Pulse Resp BP Pulse Ox 97.8 F 84 24 H 112/73 95 02/02/17 08:00 02/02/17 08:00 02/02/17 09:34 02/02/17 08:00 02/02/17 08:00 Laboratory Results 02/02/17 04:32 02/02/17 04:32 02/01/17 02/02/17 02/03/17 05:59 05:59 05:59 Intake Total 1513 900 Output Total 400 850 Balance 1113 50 ICD10 Worksheet Patient Problems: Problems Problem Status Onset Facial laceration Acute Palliative care encounter Acute Pneumonia Acute Syncope Acute Weakness Acute chronic disease mgmt/ transitional care Acute Dehydration Acute Metastatic breast cancer Acute Urinary tract infection Acute
--- NOTE | 2017-02-02 10:56 | PCMIDPN ---
Assessment/Plan: # metastatic breast cancer: Reviewed palliative care consultation yesterday, patient is not ready for hospice # Multifocal pneumonia with ground-glass appearance on imaging, empiric antibiotic coverage for 6 days with minimal changes. Broad ddx. Incremental improvement in oxygen requirement from 8 to 6 L. limited microbiologic data available but Legionella antigen negative, sputum eval for Pneumocystis negative. Mild persistent elevation in WBC. Suspect non-infectious etiology of infiltrates, but cannot be certain without further micro w/u . PCT increasing, unclear interpretation --would recommend Pulmonary consult, unclear based on my exam today if patient desires this intervention. Will discuss with primary team --change Zithromax to p.o. --if further diagnostic eval is deferred, would give atypical coverage (now azithro) for total of 7-10 days (today D#5) --Discussed case with Teddy Byrne, could consider empiric steroids for cryptogenic PNA Abx #6 Atypical coverage #5 Azithromycin 500mg IV daily #4 Ceftriaxone 1gm IV daily #4 Fluconazole 200 Micro Urine Legionella antigen negative Sputum for PCP negative Respiratory pathogen PCR negative Blood cultures x2 no growth Crypto An, galactomannan pending, Subjective: no specific c/o she is unclear if she feels any better Objective: Vital Signs Temp Pulse Resp BP Pulse Ox 36.6 C 84 24 H 112/73 95 02/02/17 08:00 02/02/17 08:00 02/02/17 09:34 02/02/17 08:00 02/02/17 08:00 Laboratory Results 02/02/17 04:32 02/02/17 04:32 02/01/17 02/02/17 02/03/17 05:59 05:59 05:59 Intake Total 1513 900 Output Total 400 850 Balance 1113 50 - Physical Exam General Appearance: no apparent distress, thin EENT: other (Ecchymosis over left lower eyelid) Respiratory: crackles, No accessory muscle use Neck: normal inspection Cardiac/Chest: regular rate, rhythm Extremities: No pedal edema Abdomen: non-tender, soft Pelvic Exam: elliott Neuro/Psych: alert, depressed affect - Time Spent With Patient Time Spent with Patient: greater than 25 minutes Time Spent with Patient: Greater than 25 minutes spent on this patients care, greater than 50% of time spent counseling, educating, and coordinating care regarding the above mentioned plan. ICD10 Worksheet Patient Problems: Problems Problem Status Onset Facial laceration Acute Palliative care encounter Acute Pneumonia Acute Syncope Acute Weakness Acute chronic disease mgmt/ transitional care Acute Dehydration Acute Metastatic breast cancer Acute Urinary tract infection Acute
[2017-02-02] MEDS ORDERED: predniSONE 20 MG TAB PO ONE (11:43)
[2017-02-02] MEDS ORDERED: POLYETHYLENE GLYCOL 3350 17 GM PKT PO PRN (11:51)
[2017-02-02] MEDS ORDERED: LACTULOSE 20 GM/30 ML UDCUP PO PRN (11:51)
[2017-02-02] MEDS ORDERED: BISACODYL 10 MG SUPP PR PRN (11:51)
[2017-02-02] MEDS ORDERED: MAGNESIUM HYDROXIDE 30 ML UDCUP PO PRN (11:51)
[2017-02-02] MEDS: predniSONE 20 MG TAB PO SCH (18:07)
[2017-02-02] MEDS: SENNOSIDES/DOCUSATE SODIUM TAB PO SCH (19:53)
[2017-02-03] MEDS: LEVOTHYROXINE 50 MCG TAB PO SCH (04:03)
[2017-02-03] MEDS: LEVOTHYROXINE 100 MCG TAB PO SCH (04:03)
[2017-02-03] MEDS: HYDROCODONE/HOMATROPINE HYCODAN 5 ML UDL PO PRN (04:03)
[2017-02-03] MEDS: HEPARIN 5,000 UNIT/0.5 ML SYR SC SCH ×3 (04:07→21:30)
[2017-02-03] MEDS: IPRATROPIUM/ALBUTEROL 3 ML DEYVIAL IH SCH ×4 (05:39→21:53)
--- NOTE | 2017-02-03 09:25 | SOAPPROG ---
SOAP Progress Note Assessment/Plan: Assessment: This is a very pleasant 86 yo female who was admitted on 01/27 following a syncopal episode at home, during which she suffered a laceration to above the left eye. 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 Shetty. She also has a hx of neurogenic bladder and hypothyroidism. On admission, CXR demonstrated R sided atelectasis, and ultimately a CT demonstrated bilat ground-glass infiltrates with considerations including non-cardiogenic edema, infection, drug reaction or hemorrhage. She has been seen by infectious disease (greatly appreciate assistance) who switched her abx to ceftriaxone and continued azithromycin. She was also started on fluconazole, and yesterday was started on prednisone as well. Plan: Acute pneumonia/pneumonitis - per ID 7-10 days of atypical coverage (azithro- currently on day #6). Will plan to switch to ceftin and continue for 5 more days when ready for PO, continue prednisone with a taper, continue fluconazole every other day until one day past last dose of prednisone. White count was down yesterday and pt is feeling much better this morning. Encourage out of bed , PO intake. Head laceration - sutured, without signs of infection or complication Neuorgenic bladder - pt straight caths at home, currently with indwelling elliott in place. Will trial removal today in anticipation of getting her discharged. Hypothyroid - managed outpt, on home dose of levothyroxine Stage IV breast cancer with liver and bone metastases - followed by Dr. Shetty (appreciate assistance!) who at this time does not feel that further treatment will benefit patient. Palliative was consulted while in the hospital ( appreciate assistance), and pt is not yet ready for hospice. Dispo - PT/OT to evaluate today and make recs - home with home health vs SNF - pt ready for discharge once this decision has been made 02/03/17 09:29 Subjective: Laurie is resting in bed this morning. She says that she is feeling much better , has increased appetite and is ready to try getting up out of bed to ambulate. She does still note a productive cough, particularly when she is talking. Objective: Vital Signs Temp Pulse Resp BP Pulse Ox 36.3 C 60 25 H 133/80 H 95 02/03/17 08:00 02/03/17 09:11 02/03/17 08:00 02/03/17 09:11 02/03/17 08:00 Laboratory Results 02/02/17 04:32 02/02/17 04:32 02/02/17 02/03/17 02/04/17 05:59 05:59 05:59 Intake Total 900 300 Output Total 850 1000 Balance 50 -700 Gen- alert, answers questions appropriately, does have underlying dementia with some general forgetfulness HEENT- bruising to L eye from fall at home - improving. Sutured laceration above L eye healing without complication. PEERL, EOMI Resp- faint rales to bibasilar, though much improved. no wheezing. now down to 2 -3 L O2 CV- RRR, S1S2, no murmurs, rubs, gallops Abd- SNT Extremities- no edema Skin- warm and dry, see above- bruising and laceration to L eye Neuro- grossly intact ICD10 Worksheet Patient Problems: Problems Problem Status Onset Facial laceration Acute Palliative care encounter Acute Pneumonia Acute Syncope Acute Weakness Acute chronic disease mgmt/ transitional care Acute Dehydration Acute Metastatic breast cancer Acute Urinary tract infection Acute
[2017-02-03] MEDS: predniSONE 20 MG TAB PO SCH ×2 (10:01→19:10)
[2017-02-03] MEDS: SENNOSIDES/DOCUSATE SODIUM TAB PO SCH ×2 (10:02→21:30)
[2017-02-03] MEDS: AZITHROMYCIN 250 MG TAB PO SCH (10:03)
[2017-02-03] MEDS: FLUCONAZOLE/NaCl 100 ML IV SCH (10:03)
--- NOTE | 2017-02-03 10:03 | PCMIDPN ---
Assessment/Plan: # metastatic breast cancer: Reviewed palliative care consultation yesterday, patient is not ready for hospice # Multifocal pneumonia with ground-glass appearance on imaging, significant improvement overnight with initiation of steroids suggestive of cryptogenic organizing pneumonia --if further diagnostic eval is deferred, would give atypical coverage (now azithro) for total of 7-10 days (today D#6) --call for additional questions Abx #6 Atypical coverage #6 Azithromycin 500mg IV daily #5 Ceftriaxone 1gm IV daily #5 Fluconazole 200mg daily Micro Urine Legionella antigen negative Sputum for PCP negative Respiratory pathogen PCR negative Blood cultures x2 no growth Crypto An negative galactomannan pending Subjective: patient more cheerful today, not sure if fatigue, SOB better but does feel like coughing less. Objective: Vital Signs Temp Pulse Resp BP Pulse Ox 36.3 C 60 25 H 133/80 H 95 02/03/17 08:00 02/03/17 09:11 02/03/17 08:00 02/03/17 09:11 02/03/17 08:00 Laboratory Results 02/02/17 04:32 02/02/17 04:32 02/02/17 02/03/17 02/04/17 05:59 05:59 05:59 Intake Total 900 300 Output Total 850 1000 Balance 50 -700 - Physical Exam General Appearance: alert, no apparent distress, thin, non-toxic Respiratory: crackles (Scattered), other (Shallow inspiratory effort), No accessory muscle use Neck: supple Cardiac/Chest: regular rate, rhythm Extremities: No pedal edema Abdomen: non-tender, soft Skin: other (Ecchymosis under left eye) Neuro/Psych: alert, normal mood/affect, oriented x 3 ICD10 Worksheet Patient Problems: Problems Problem Status Onset Facial laceration Acute Palliative care encounter Acute Pneumonia Acute Syncope Acute Weakness Acute chronic disease mgmt/ transitional care Acute Dehydration Acute Metastatic breast cancer Acute Urinary tract infection Acute
--- NOTE | 2017-02-03 14:33 | ASMTCMCOM ---
CM Note CM Note Notes: Met with pt's , Maximo and good friend Uzair today to discuss DC needs. Pt now meets criteria for rehab and Maximo chose [facility]. [facility] has indicated that pt can tx to a alf care bed after rehab and Maximo is interested but needs time to condier his options. Maximo is considering home with 07/11 vs staying at [facility]. [facility] also met with pt and Maximo today to discuss possibility of palliative care. Pt declined to discuss and does not want it at this point. Pt currently has not named an MDPOA. puncherviraj Landeros asked to discuss this with pt. C/M will continue to follow. follow. Date Signed: 02/03/2017 02:32 PM Electronically Signed By:Humaira Lao LCSW
[2017-02-03] MEDS ORDERED: FUROSEMIDE 20 MG TAB PO ONE (19:15)
[2017-02-04] MEDS: HYDROCODONE/HOMATROPINE HYCODAN 5 ML UDL PO PRN ×2 (00:02→20:13)
[2017-02-04] MEDS: IPRATROPIUM/ALBUTEROL 3 ML DEYVIAL IH SCH ×4 (05:30→23:26)
[2017-02-04] MEDS: HEPARIN 5,000 UNIT/0.5 ML SYR SC SCH ×3 (05:30→20:13)
[2017-02-04] MEDS: LEVOTHYROXINE 50 MCG TAB PO SCH (05:30)
[2017-02-04] MEDS: LEVOTHYROXINE 100 MCG TAB PO SCH (05:30)
[2017-02-04] MEDS: SENNOSIDES/DOCUSATE SODIUM TAB PO SCH ×2 (08:39→23:39)
[2017-02-04] MEDS: AZITHROMYCIN 250 MG TAB PO SCH (08:39)
[2017-02-04] MEDS: predniSONE 20 MG TAB PO SCH ×2 (08:40→17:29)
[2017-02-04] MEDS: FLUCONAZOLE/NaCl 100 ML IV SCH (11:08)
--- NOTE | 2017-02-04 14:47 | SOAPPROG ---
SOAP Progress Note Assessment/Plan: Assessment: Diffuse pulmonary infiltrates, likely atypical pneumonia. jSignificantly improved with oxygen sat of 85-97% on 2 L oxygen. 01/28/17 09:57 01/30/17 08:28 01/31/17 22:49 01/31/17 22:50 Plan: Will initiate fluconazole and see if status improves. 02/04/17 14:45 Will recheck CXR. replace elliott. COnt with current treatment. PT eval, (Pt has agreed to try to participate. ) Will be [facility]ing at [facility] early next week. Subjective: Feeling some better. Still very weak. Breathing more comfortably, cough improved. Objective: Vital Signs Temp Pulse Resp BP Pulse Ox 97.7 F 58 L 22 H 126/70 H 90 L 02/04/17 12:59 02/04/17 12:53 02/04/17 12:53 02/04/17 08:00 02/04/17 12:53 Laboratory Results 02/02/17 04:32 02/02/17 04:32 02/03/17 02/04/17 02/05/17 05:59 05:59 05:59 Intake Total 300 600 Output Total 1000 100 Balance -700 500 Lungs with persistent bibasilar rales however significantly improved from a couple of days ago. COR rrr. Having urine incoontinence with a large post void residual. She has been self cathing for years. ICD10 Worksheet Patient Problems: Problems Problem Status Onset Facial laceration Acute Palliative care encounter Acute Pneumonia Acute Syncope Acute Weakness Acute chronic disease mgmt/ transitional care Acute Dehydration Acute Metastatic breast cancer Acute Urinary tract infection Acute
[2017-02-04] MEDS: BENZONATATE 100 MG CAP PO PRN (20:13)
[2017-02-05] MEDS: IPRATROPIUM/ALBUTEROL 3 ML DEYVIAL IH SCH ×5 (05:07→19:21)
[2017-02-05] MEDS: HEPARIN 5,000 UNIT/0.5 ML SYR SC SCH ×3 (05:17→19:43)
[2017-02-05] MEDS: FLUCONAZOLE/NaCl 100 ML IV SCH (08:38)
[2017-02-05] MEDS: AZITHROMYCIN 250 MG TAB PO SCH (08:38)
[2017-02-05] MEDS: predniSONE 20 MG TAB PO SCH ×2 (08:38→18:47)
--- NOTE | 2017-02-05 13:30 | SOAPPROG ---
SOAP Progress Note Assessment/Plan: Assessment: 86 yo female with metastatic breast cancer w/ bone/liver mets hospitalized w/ increased O2 req't/pna/head lac after fall - PNA - appreciate ID input, cxr yesterday marginally improved, oxygen req't greatly improved, had best improvement w addition of steroids - ? if cryptogenic organizing pna - has completed cephalosporins today, will continue on azith for atypical coverage for 7-10 d (stop date now placed on abx at 10 days) today is day 7, fluconazole changed to oral qod while pred on board, prednisone taper starting now w/ current oxygen req't 1 L w/ sats in 90's, breathing comfortably this am. Nebs changed to bid as she is not using them q6. Will decrease to 30 pred tonight, tomorrow am, then 20 bid for following 24 hrs , follow and assess to continue pred taper. -head lac - sutures ready to d/c tomorrow -neurogenic bladder - cath had to be placed back again yesterday - she is able to self-cath and feels like as soon as she has a little more strength she will be able to do this again. -Stage IV brca - per Dr. Shetty no further treatments currently to offer, she was given option of palliative care but she does not want to pursue this, would like to go to [facility] for strengthening, pt/ot. -dvt prohp - hep -dispo - would like to go to [facility] hopefully early this week. Have started taper of meds as above, would like to see how she does today with the changes, re-assess bladder issues. Plan: 02/05/17 13:09 Subjective: Doing ok, eating ice cream and finished an omelet, spouse at bedside Objective: Vital Signs Temp Pulse Resp BP Pulse Ox 36.5 C 53 L 20 144/75 H 97 02/05/17 12:35 02/05/17 12:35 02/05/17 12:35 02/05/17 12:35 02/05/17 12:35 Microbiology 01/30/17 11:35 Blood Culture - Final Blood 01/30/17 11:35 Blood Culture - Final Blood Laboratory Results 02/02/17 04:32 02/02/17 04:32 02/04/17 02/05/17 02/06/17 05:59 05:59 05:59 Intake Total 600 278 Output Total 100 600 Balance 500 -322 Gen: A&O, in better spirits, breathing comfortably this am, generalized weakness HEENT: eomi, Lac w/ sutures above L eye Neck: soft/supple Chest: port L chest, some rhonchi/coarse bs but good air movement anterior/ laterally Abd: soft, nt/nd +bs Ext: wearing squeezers, good pulses - Pending Discharge Pending Discharge Within 48 Hours: Yes Pending Discharge Date: 02/07/17 Pending Discharge Time: 11:00 ICD10 Worksheet Patient Problems: Problems Problem Status Onset Palliative care encounter Acute Pneumonia Acute chronic disease mgmt/ transitional care Acute Urinary tract infection Acute Dehydration Acute Metastatic breast cancer Acute Weakness Acute Syncope Acute Facial laceration Acute
[2017-02-05] MEDS: SENNOSIDES/DOCUSATE SODIUM TAB PO SCH ×2 (14:06→20:28)
[2017-02-06] MEDS: HEPARIN 5,000 UNIT/0.5 ML SYR SC SCH (06:04)
[2017-02-06 07:58] VITALS: TEMP 97.4
[2017-02-06] MEDS: AZITHROMYCIN 250 MG TAB PO SCH (08:14)
[2017-02-06] MEDS: predniSONE 20 MG TAB PO SCH (08:14)
--- NOTE | 2017-02-06 08:16 | SOAPPROG ---
SOAP Progress Note Assessment/Plan: Assessment: This is a very pleasant 86 yo female who was admitted on 01/27 following a syncopal episode at home, during which she suffered a laceration to above the left eye. 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 Shetty. She also has a hx of neurogenic bladder, for which she straight caths, and hypothyroidism. On admission, CXR demonstrated R sided atelectasis, and ultimately a CT demonstrated bilat ground-glass infiltrates with considerations including non- cardiogenic edema, infection, drug reaction or hemorrhage. She has been seen by infectious disease (appreciate assistance) who switched her abx to ceftriaxone and continued azithromycin. She is currently finished with the course of ceftriaxone and has a couple more days of the azithro (end date place by Dr. Yadav). She was also started on prednisone, which seems to have made the most improvement in her progress. She was also started on fluconazole, which she will continue through the prednisone taper. Plan: Acute pneumonia - as discussed above - finish azithro course (2 more days), has completed ceftriaxone, currently on pred taper, continue fluconazole while on pred. O2 requirements down significantly - currently on 1-2LO2, and breath sounds improved. Overall with more energy, improved appetite. Head laceration - sutured, without signs of infection or complication - ready for sutures to be removed today. Neuorgenic bladder - pt straight caths at home, though given her residual weakness had to have cath replaced yesterday due to inability to straight cath. Will leave this for now while she regains some strength. Hypothyroid - managed outpt, on home dose of levothyroxine Stage IV breast cancer with liver and bone metastases - followed by Dr. Shetty who at this time does not feel there are further treatment options available. Pt and her have met with palliative, and at this time do not feel she is ready for their assistance or for hospice. Dispo - pt would like to d/c to [facility] and is medically ready to do so 02/06/17 08:16 Subjective: Laurie is resting in bed, says she didn't sleep too well last night, but is overall feeling better. She still reports an intermittent cough, but feels it has improved. She is eager to get to rehab so that she can get stronger and then go home. Denies fevers, chills over night. Says her appetite is okay. Objective: Vital Signs Temp Pulse Resp BP Pulse Ox 36.3 C 51 L 20 137/68 H 97 02/06/17 07:52 02/06/17 07:52 02/06/17 07:52 02/06/17 07:52 02/06/17 07:52 Laboratory Results 02/02/17 04:32 02/02/17 04:32 02/05/17 02/06/17 02/07/17 05:59 05:59 05:59 Intake Total 278 700 Output Total 600 550 Balance -322 150 Gen- Alert, vitals stable HEENT- improving ecchymosis to L orbit, EOMI, PEERL, laceration above L eye ready for sutures to come out today Chest- accessed chemo port to L upper chest without redness or swelling, dressing CDI Resp- Fine rales to bilat bases but good air movement bilat CV- S1S2, RRR, no murmurs, rubs, gallops Abd- SNT Extremities- no peripheral edema noted Skin- warm and dry. See HEENT regarding ecchymosis and head lac. Neuro- answers questions appropriately, grossly intact ICD10 Worksheet Patient Problems: Problems Problem Status Onset Facial laceration Acute Palliative care encounter Acute Pneumonia Acute Syncope Acute Weakness Acute chronic disease mgmt/ transitional care Acute Dehydration Acute Metastatic breast cancer Acute Urinary tract infection Acute
--- NOTE | 2017-02-06 08:28 | PDIAF ---
- Diagnosis Diagnosis: Acute pneumonia Code Status: Do Not Resuscitate - Medication Management Discharge Medications: Medications to Continue on Transfer Levothyroxine [Synthroid 50 mcg (*)] 50 mcg PO SUTUTHSA@06 10/05/15 [Last Taken 01/26/17] Levothyroxine [Synthroid 100 mcg (*)] 100 mcg PO MWF@06 #0 tab 08/03/16 [Last Taken 01/27/17] Azithromycin [Zithromax] 500 mg PO DAILY tab 02/06/17 [Last Taken Unknown] Benzonatate [Tessalon Pearles] 100 - 200 mg PO TID PRN cap 02/06/17 [Last Taken Unknown] Fluconazole [Diflucan (*)] 100 mg PO Q2D tab 02/06/17 [Last Taken Unknown] Polyethylene Glycol 3350 [Miralax 17 gm (*)] 17 gm PO DAILY PRN pkt 02/06/17 [ Last Taken Unknown] Sennosides/Docusate Sodium [Senokot-S] 1 - 2 tab PO BID tab 02/06/17 [Last Taken Unknown] predniSONE 20 mg PO BIDMEAL tablet 02/06/17 [Last Taken Unknown] Discharge Medications: Refer to the Discharge Home Medication list for PRN reason. - Orders Diet Recommendation: no restrictions on diet Diet Texture: Regular Texture Diet - Follow Up Care Current Providers and Referrals: Patient,NotPresent [Unknown] - As per Instructions
[2017-02-06 08:29] LABS: ABSOLUTE NRBC COUNT 0.13 10^3/uL (0-0.01); ADD DIFF? YES; ADD MORPH? NO; ADD SCAN? YES; ATYPICAL LYMPHOCYTE FLAG 10 (0-99); FRAGMENT RBC FLAG 40 (0-99); HEMATOCRIT 29.8 % (38.0-47.0); HEMOGLOBIN 10.2 g/dL (12.6-16.3); LIPEMIA HEMOLYSIS FLAG 90 (0-99); MEAN CELL HEMOGLOBIN 37.2 pg (27.9-34.1); MEAN CELL HEMOGLOBIN CONCENTR. 34.2 g/dL (32.4-36.7); MEAN CELL VOLUME 108.8 fL (81.5-99.8); NRBC-AUTO% 0.9 % (0.0-0.2); PLATELET CLUMPS FLAG 0 (0-99); PLATELET COUNT 234 10^3/uL (150-400); RED BLOOD CELL COUNT 2.74 10^6/uL (4.18-5.33); RED CELL DISTRIBUTION WIDTH 17.4 % (11.5-15.2)
[2017-02-06 08:32] LABS: LEFT SHIFT FLG 110 (0-99)
[2017-02-06] MEDS: SENNOSIDES/DOCUSATE SODIUM TAB PO SCH (08:38)
[2017-02-06 08:56] LABS: SCAN POSITIVE
[2017-02-06 09:04] LABS: MACROCYTES 2+; MICROCYTES 1+; PLATELET ESTIMATE ADEQUATE (ADEQ); POLYCHROMASIA 1+; SCHISTOCYTES 1+
[2017-02-06] MEDS: IPRATROPIUM/ALBUTEROL 3 ML DEYVIAL IH SCH (10:16)
[2017-02-06 11:23] VITALS: BP 104/58; PULSE 63; RESP 17; O2SAT 98
--- NOTE | 2017-02-06 11:51 | ASMTCMCOM ---
CM Note CM Note Notes: Patient ready to discharge to [facility] rehab . Alcira at [facility] notified and has set up ambulance transport for patient. Patient to transfer at 1300. Date Signed: 02/06/2017 11:51 AM Electronically Signed By:JAINNA Aragon
[2017-02-06] MEDS ORDERED: predniSONE 20 MG TAB PO SCH (18:00)
--- NOTE | 2017-02-06 23:32 | GDS ---
[f rep st] DISCHARGE SUMMARY REASON FOR ADMISSION: The patient is an 86-year-old female who was admitted on 01/27 following a fal l at home, during which she hit her head. She required superficial suturing of a 2 cm head laceratio n above her left eye. Her head CT was negative for bleed. She was admitted for generalized weakness and for monitoring and workup. HOSPITAL COURSE: On admission, the patient's white blood cells were elevated at 12.61. She was afeb rile and vitals were stable. Chest x-ray demonstrated right-sided pneumonia. She was initially star rakan on IV Zosyn. She had recently completed a course of p.o. Levaquin for a UTI on the day she was a dmission. However, due to lack of response to treatment, she was also started on IV Levaquin on 01/15. On 01/31, she had further worsened symptomatically and was requiring increased oxygen. Infectious Di sease was consulted, and she was started on azithromycin and IV Rocephin. The respiratory panel was grossly negative. Procalcitonin was elevated, suggesting infectious etiology. On 02/02, she was sta rted on prednisone to see if this would provide further antiinflammatory benefits pulmonary-moreno and help her feel better symptomatically. She did experience significant improvement following this iam tion. She was started also on fluconazole to provide coverage for fungal source, particularly after the steroid addition. Since she has improved significantly, is now ready to discharge to rehab to increase her strength and mobility. The patient chronically straight caths at home and was trialed this weekend without her F oley catheter. She failed this trial, requiring reinsertion of [place]. She will discharge with a Fol ey and plan for the half-way facility to trial removal in a few days again. While admitted, she was also followed by Dr. Bee and Dr. Shetty for her stage IV breast cancer wit h liver and bone metastasis. Dr. Bee discussed with her and her that there are no other cu rrent treatment options available for them. They did meet with Palliative Care and currently are dec lining their assistance and also declining Hospice. She will discharge to [facility] and then follow up in the office for a followup visit af ter she is discharged from rehab. DISCHARGE MEDICATIONS: Include azithromycin 500 mg p.o. daily for the next 2 days, Tessalon Perles 1 00 to 200 mg p.o. t.i.d. p.r.n., fluconazole 100 mg p.o. every other day, MiraLAX 17 g p.o. daily p.r .n., prednisone 20 mg p.o. b.i.d. (taper instructions given to nursing facility), Senokot 1-2 tablets p.o. b.i.d., levothyroxine 50 mcg p.o. every Monday/Monday//Monday and levothyroxine 100 mcg p.o. Monday/Monday/Monday. /[id number]/MODL
[2017-02-07] MEDS ORDERED: FLUCONAZOLE 100 MG TAB PO SCH (09:00)
== END 2017-02-06 13:17 | DRG 193 ==
LOC: EDUNIT# → EDBD → F1N 17:59
PROVIDERS: ADMIT Internal Medicine; ATTEND Internal Medicine
PROC: 0HQ1XZZ Repair Face Skin, External Approach (ICD-10-PCS; principal; 2017-01-27)
PROC: 0T2BX0Z Change Drainage Device in Bladder, External Approach (ICD-10-PCS; 2017-02-04)
DX: J18.9 Pneumonia, unspecified organism (principal); J96.01 Acute respiratory failure with hypoxia; E43 Unspecified severe protein-calorie malnutrition; Z68.1 Body mass index [BMI] 19.9 or less, adult; C50.919 Malignant neoplasm of unspecified site of unspecified female breast; C78.7 Secondary malignant neoplasm of liver and intrahepatic bile duct; C79.51 Secondary malignant neoplasm of bone; S01.112A Laceration without foreign body of left eyelid and periocular area, initial encounter; W19.XXXA Unspecified fall, initial encounter; Y92.009 Unspecified place in unspecified non-institutional (private) residence as the place of occurrence of the external cause; E03.9 Hypothyroidism, unspecified; E78.5 Hyperlipidemia, unspecified; Z66 Do not resuscitate; N31.9 Neuromuscular dysfunction of bladder, unspecified; Z51.5 Encounter for palliative care; Z87.440 Personal history of urinary (tract) infections
CPT/HCPCS: 87449-90; 97161-GP; 97166-GO; 97530-GO; 97530-GP; G8978-GP-CM; G8979-GP-CJ; G8987-GO-CK; G8988-GO-CI; J0456; J0696; J1450; J1642; J1956; J2543; Q9967